=== PATIENT | male | born 1990 | race Caucasian/White ===

== ENCOUNTER 2017-09-12 00:53 | Emergency (ER) | payer OTHER ==
[~2017-09-12] VITALS: Ht 185.4 cm; Wt 159.7 kg
[2017-09-12 00:57] VITALS: TEMP 36.8; Ht 185.4 cm; Wt 159.7 kg
[2017-09-12] MEDS ORDERED: FENTANYL CITRATE INJ 50 MCG/1 ML 2 ML VIAL IV STA (01:13)
[2017-09-12] MEDS ORDERED: LEVO50TA6 PO (01:30)
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
[2017-09-12] MEDS ORDERED: HYDROmorphone INJ 2 MG/ML SYR/VIAL IV STA (02:15)
[2017-09-12 02:26] VITALS: O2SAT 92
[2017-09-12] MEDS ORDERED: OXYC1TAB3 PO (03:33)
[2017-09-12] MEDS ORDERED: OXYCODONE IR HOME PACK PO ONE (03:45)
[2017-09-12 03:52] VITALS: BP 116/64; PULSE 82; O2SAT 97
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
[2017-09-13] MEDS ORDERED: OXYC1TAB3 PO (14:44)
== END 2017-09-12 03:53 | disposition home or self-care (01) ==
LOC: C.EDB 00:55 → C.EDA 03:53
DX: S52.021A Displaced fracture of olecranon process without intraarticular extension of right ulna, initial encounter for closed fracture (principal); V48.6XXA Car passenger injured in noncollision transport accident in traffic accident, initial encounter; Z88.0 Allergy status to penicillin

== ENCOUNTER 2017-09-16 05:24 | Day surgery (SDC) | payer OTHER ==
[2017-09-13 14:45] VITALS: BMI 46.0
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
[~2017-09-16] VITALS: Ht 182.9 cm; Wt 154.6 kg
[~2017-09-16 05:24] MED LIST: LEVO50TA6 PO; OXYC1TAB3 PO
[2017-09-16 05:42] VITALS: BP 160/80; PULSE 80; TEMP 37.4; O2SAT 94; Ht 182.9 cm; Wt 154.6 kg
[2017-09-16] MEDS ORDERED: CLINDAMYCIN 600 MG/54 ML D5W IV SCH (06:00)
[2017-09-16] MEDS ORDERED: LACTATED RINGER'S 1000ML 1,000 ML IV SCH (06:00)
[2017-09-16] MEDS ORDERED: ROPIVACAINE 0.5% 5 MG/ML 30 ML VIAL ONE (06:27)
[2017-09-16] MEDS ORDERED: DEXAMETHASONE SOD INJ 4 MG/ML VIAL ONE ×2 (06:27→06:43)
[2017-09-16] MEDS ORDERED: ONDANSETRON INJ 2 MG/ML 2 ML VIAL ONE (06:43)
[2017-09-16] MEDS ORDERED: PROPOFOL IV EMULSION 10 MG/ML 20 ML VIAL IV ONE ×2 (06:43→08:17)
[2017-09-16] MEDS ORDERED: FENTANYL CITRATE INJ 50 MCG/1 ML 2 ML VIAL ONE ×3 (06:43→09:28)
[2017-09-16] MEDS ORDERED: ROCURONIUM BROMIDE 10 MG/ML 5 ML VIAL IV ONE ×3 (06:43→08:16)
[2017-09-16] MEDS ORDERED: LIDOCAINE HCL 2% 2 ML VIAL (20MG/ML) ONE (06:43)
[2017-09-16] MEDS ORDERED: MIDAZOLAM HCL 1 MG/ML 2ML VIAL ONE (06:43)
--- NOTE | 2017-09-16 07:02 | History & Physical Bridge Note ---
H&P Re-Evaluation Bridge Note: I have examined the patient, reviewed the History & Physical and in the interval since the performance of the History & Physical I have noted the following changes of clinical significance: No changes noted
[2017-09-16] MEDS ORDERED: BUPIVACAINE/EPINEPHRINE 0.5% MPF 1:200,000 30 ML VIAL ONE (07:14)
[2017-09-16] MEDS ORDERED: HYDROmorphone INJ 2 MG/ML SYR/VIAL ONE (07:35)
--- NOTE | 2017-09-16 08:11 | [facility] Post Operative Brief Note ---
Immediate Operative Summary Operative Date Sep 16, 2017. Pre-Operative Diagnosis Displaced intra-articular olecranon fracture, right elbow Post-Operative Diagnosis Same as preop Procedure(s) Performed orif Surgeon Dr. Gomez Nozzle Tender Surgeon(s) Mitch Morse PA-C Estimated Blood Loss 20cc Findings Consistent with Post-Op Diagnosis Specimens none per surgeon Anesthesia Type General Disposition Disposition: Recovery Room / PACU
--- NOTE | 2017-09-16 08:27 | OPERATIVE REPORT ---
DATE OF OPERATION: 09/16/2017 PREOPERATIVE DIAGNOSIS: Same. POSTOPERATIVE DIAGNOSIS: Displaced olecranon fracture, right. PROCEDURE: Open reduction internal fixation of olecranon fracture, right. SURGEON: Tom Gomez MD. PERFORATOR TYPIST: Mitch Morse PA-C. ANESTHESIA: General. COMPLICATIONS: None. Mr. Morse was utilized throughout the case for all portions of the case including positioning, prepping, draping, surgical brace maker, wound closure and splint application. DESCRIPTION OF PROCEDURE: The patient was placed in the left lateral decubitus position and the right elbow was prepped and draped in the usual sterile manner. The limb was exsanguinated with an Esmarch bandage, tourniquet inflated to 250 mmHg. Longitudinal incision was made over the posterior aspect of the elbow. Subcutaneous tissue was sharply dissected. Electrocautery was used for hemostasis. Subperiosteal dissection was used to expose the ulna and the fracture site was identified. Clotted blood was evacuated using mechanical debridement as well as irrigation. A towel clip was used to hold the olecranon in anatomic position while it was fixed using two 0.063 K wires. Fluoroscopy confirmed proper wire placement. An 18-gauge beaded tipped guidewire was then placed in a typical tension fashion and the anatomic fixation of the olecranon was documented by fluoroscopy. The wound was thoroughly irrigated. It was anesthetized Marcaine with epinephrine 0.5% and it was closed using 2-0 Dexon and debi. Sterile dressing of Adaptic, 4 x 4's, sterile Webril, posterior plaster splint and 4-6 inch Reji wrap was applied. The patient tolerated the procedure well. I attest to the content of the Intraoperative Record and any orders documented therein. Any exception s are noted below.
[2017-09-16] MEDS ORDERED: NEOSTIGMINE METHYLSULFATE 5 MG/5 ML SYR ONE (08:28)
[2017-09-16] MEDS ORDERED: GLYCOPYRROLATE INJ 0.2 MG/ML VIAL ONE (08:28)
[2017-09-16] MEDS ORDERED: KETOROLAC TROMETHAMINE 30 MG/ML VIAL IV. PRN (08:30)
[2017-09-16] MEDS ORDERED: MEPERIDINE HCL 25 MG/ML CARP IV PRN (08:30)
[2017-09-16] MEDS ORDERED: EpHEDrine SULFATE INJ 50 MG/ML AMP IV PRN (08:30)
[2017-09-16] MEDS ORDERED: LABETALOL HCL IV 5 MG/ML 20ML IV PRN (08:30)
[2017-09-16] MEDS ORDERED: FENTANYL CITRATE INJ 50 MCG/1 ML 2 ML VIAL IV PRN (08:30)
[2017-09-16] MEDS ORDERED: ATROPINE SULFATE 0.1 MG/ML 5ML SYR IV PRN (08:30)
[2017-09-16] MEDS ORDERED: HYDROmorphone INJ 1 MG/ML SYR IV PRN (08:30)
[2017-09-16] MEDS ORDERED: ONDANSETRON INJ 2 MG/ML 2 ML VIAL IV PRN (08:30)
[2017-09-16] MEDS ORDERED: SODIUM CHLORIDE 0.9% 1000ML 1,000 ML IV SCH (08:47)
[2017-09-16] MEDS ORDERED: OXYC1TAB3 PO (08:49)
--- NOTE | 2017-09-16 08:52 | Discharge Instructions ---
Discharge Instructions Date of Service Sep 16, 2017. Visit Reason for Visit: Right Elbow Displaced Olecranon Fracture W/O Intra Discharge Discharge Diagnosis / Problem: Right elbow olecranon fracture Discharge Goals Goal(s): Decrease discomfort, Improve function Activity Recommendations Activity Limitations: as noted below Anesthesia . Post Anesthesia Instructions: If you have had General Anesthesia or IV Sedation: * Do not drive today. * Resume driving when surgeon permits. * Do not make important decisions or sign legal documents today. * Call surgeon for: 1. Temperature elevations greater than 101 degrees F. 2. Uncontrollable pain. 3. Excessive bleeding. 4. Persistent nausea and vomiting. 5. Medication intolerance (nausea, vomiting or rash). * For nausea and vomiting use only clear liquids such as: tea, soda, bouillon until nausea subsides, then gradually increase diet as tolerated. * If you have any concerns or questions, call your surgeon's office. If physician is unavailable and it is an emergency, call 911 or go to the nearest emergency room. . Instructions / Follow-Up Instructions / Follow-Up Maintain dressing/splint until follow-up with MD. Move fingers frequently. Frequent ice as needed. Follow-up with Dr Gomez ~ 10-14 days. Diet Recommendations Recommended Home Diet: resume previous diet Procedures Procedures Performed: orif Pending Studies Studies pending at discharge: no Medical Emergencies . Who to Call and When: Medical Emergencies: If at any time you feel your situation is an emergency, please call 911 immediately. . Non-Emergent Contact Non-Emergency issues call your: Surgeon Call Non-Emergent contact if: temperature is above 101.5, your pain is not controlled, wound has increased drainage, wound has increased redness . . "Provider Documentation" section prepared by Mitch Morse PA-C. . [place] Drug Monitoring Program Search Results: patient reviewed within database, no issues identified
--- NOTE | 2017-09-16 08:57 | DIAGNOSTIC IMAGING REPORT ---
R ELBOW 2 VIEWS CLINICAL HISTORY: RT ELBOW OLECRANON ORIF fracture COMPARISON: None. DISCUSSION: Evidence for portal reduction internal fixation of the proximal ulnar olecranon fracture. 2. Linear bands and a circumferential wire are present. Bony alignment appears to be anatomic within limitations of the image intensifier views. IMPRESSION: Anatomic alignment of the proximal ulna post open reduction internal fixation. The above report was generated using voice recognition software. It may contain grammatical, syntax or spelling errors. Electronically signed by: Brian Raines M.D. 09/16/2017 8:56 AM Dictated Date/Time: 09/16/2017 8:55 AM
[2017-09-16] MEDS ORDERED: OXYCODONE/ACETAMINOPHEN 5-325 TAB PO PRN ×2 (09:00)
[2017-09-16 10:00] VITALS: BP 140/63; PULSE 92; TEMP 37.5; O2SAT 93
--- NOTE | 2017-09-16 10:02 | Anesthesiology Progress Note ---
Anesthesia Post Op Note Date & Time Sep 16, 2017 at 10:01 Vital Signs Pain Intensity: 4 Vital Signs Past 12 Hours Date Time Temp Pulse Resp B/P (MAP) Pulse Ox O2 Delivery O2 Flow Rate FiO2 09/16/17 09:50 37.0 67 18 133/61 93 Nasal Cannula 2 09/16/17 09:40 37.0 86 18 127/83 93 Nasal Cannula 2 09/16/17 09:30 76 18 146/89 94 Nasal Cannula 3 09/16/17 09:20 89 16 132/84 95 Nasal Cannula 4 09/16/17 09:10 76 16 158/88 91 Oxymask 10 09/16/17 09:00 76 16 133/79 91 Oxymask 10 09/16/17 08:52 36.8 85 16 153/90 92 Oxymask 10 09/16/17 05:42 37.4 80 18 160/80 (106) 94 Room Air Notes Mental Status: alert / awake / arousable, participated in evaluation Pt Amnestic to Procedure: Yes Nausea / Vomiting: adequately controlled Pain: adequately controlled Airway Patency, RR, SpO2: stable & adequate BP & HR: stable & adequate Hydration State: stable & adequate Anesthetic Complications: no major complications apparent
== END 2017-09-16 11:00 | disposition home or self-care (01) ==
LOC: C.ACU 05:24
DX: S52.031A Displaced fracture of olecranon process with intraarticular extension of right ulna, initial encounter for closed fracture (principal); I10 Essential (primary) hypertension; E03.9 Hypothyroidism, unspecified; K21.9 Gastro-esophageal reflux disease without esophagitis; E66.01 Morbid (severe) obesity due to excess calories; V89.2XXA Person injured in unspecified motor-vehicle accident, traffic, initial encounter; Z88.0 Allergy status to penicillin; Z88.1 Allergy status to other antibiotic agents; F17.220 Nicotine dependence, chewing tobacco, uncomplicated

== ENCOUNTER 2021-09-18 11:15 | Inpatient (IN) ==
--- NOTE | 2021-09-18 11:40 | Emergency Department Note ---
History of Present Illness General Chief complaint: Shortness of Breath/Dyspnea Stated complaint: COVID+ 09/15, SOB, LOW O2 Time Seen by Provider: 09/18/21 11:32 History of Present Illness Maximum Pain Intensity: 6 This is a 30-year-old male that presents to the emergency department via private vehicle with complaints of "Covid positive, shortness of breath, low oxygen". Patient notes that on 09/09 he began with chills/shakes. He then progressed to a cough. Patient notes that he tested positive for COVID-19 on 09/15/2021. He notes some shortness of breath. He borrowed a friend's pulse oximeter and his O2 was 77%. He was concerned therefore prompting arrival here today. He does note some intermittent chest pain. Home Medications Medication Instructions Recorded Confirmed Type levothyroxine 137 mcg tablet 137 mcg PO DAILY 09/18/21 09/18/21 History Allergies Allergy/AdvReac Type Severity Reaction Status Date / Time Penicillins Allergy Mild PENICILLIN Verified 06/24/21 21:59 AND AMOXICILLIN-SOB HIVES Past Med/Surg History Medical History History of back problems HLD (hyperlipidemia) Hypothyroidism Obesity Surgical History H/O elbow surgery History of arthroscopic knee surgery Hx of tonsillectomy Family History Mother Multiple sclerosis Father Asthma Social History Smoking Status: Never smoker Hx Alcohol Use: Yes Hx Substance Use: No Preferred Language: Surinamese marital status: Single current occupational status: employed current occupation: [employer] Feels Safe at Home: Yes Review of Systems A total of 10 systems reviewed and were otherwise negative Physical Exam Vital Signs Vital Signs - 24 hr 09/18/21 11:24 09/18/21 11:39 09/18/21 11:47 Temperature 36.3 C L Temperature Source Temporal Artery Scan Pulse Rate 91 H 93 H Pulse Rate [Left Radial] 85 Pulse Rhythm Regular Pulse Rhythm [Left Radial] Regular Pulse Strength [Left Radial] Normal Respiratory Rate 22 20 20 Respiratory Effort / Characteristics Grunting Labored Respiratory Depth Normal Normal Blood Pressure 124/71 Blood Pressure Mean 88 Pulse Oximetry 85 L 93 94 Oxygen Delivery Method Room Air Nasal Cannula Nasal Cannula Oxygen Flow Rate 4 4 Sepsis Recent Fever Within 48 Hours No Sepsis New/Unexplained Change in Mental Status No Sepsis Action Taken by Nursing No Action Required 09/18/21 13:13 Temperature Temperature Source Pulse Rate 74 Pulse Rate [Left Radial] Pulse Rhythm Pulse Rhythm [Left Radial] Pulse Strength [Left Radial] Respiratory Rate 20 Respiratory Effort / Characteristics Respiratory Depth Blood Pressure 114/64 Blood Pressure Mean 80 Pulse Oximetry 92 Oxygen Delivery Method Oxygen Flow Rate 4 Sepsis Recent Fever Within 48 Hours Sepsis New/Unexplained Change in Mental Status Sepsis Action Taken by Nursing VITAL SIGNS - Vital signs and nursing notes were reviewed. Hypoxic, otherwise stable. GENERAL -30-year-old male appearing his stated age who is in no acute distress. Communicates well with provider and answers questions appropriately. SKIN - Without rashes. No meningeal or petechial rash. HEAD - NC/AT. EYES - PERRL with EOMI bilaterally. Sclera anicteric. EARS - No deformities of external structures noted on gross examination bilaterally. NOSE - Midline and without cyanosis. No epistaxis or purulent drainage noted. MOUTH/OROPHARYNX - Without perioral cyanosis. Buccal mucosa pink and moist and without leukoplakia. Tongue midline with equal elevation of palate bilaterally. No tonsillar hypertrophy, erythema, or exudates noted. Good dentition noted. NECK - Neck with FROM. No nuchal rigidity. LUNGS -decreased breath sounds bilaterally. No increased work of breathing appreciated on examination. No drooling, stridor, trismus, wheezing or tripoding. Normal phonation. CARDIAC - RRR with S1/S2. No murmur, rubs, or gallops appreciated. EXTREMITIES - No clubbing or peripheral cyanosis. +5/5 strength noted in UE/LE bilaterally. NEUROLOGIC - Cranial nerves II through XII grossly intact. PSYCH - A&O, and cooperates fully with examiner. Pt is very pleasant and interacts well with examiner. Course Administered Medications Discontinued Medications Ioversol (Optiray 320 125ml) 119 ml IV ONCE ONE Stop: 09/18/21 12:49 Last Admin: 09/18/21 12:50 Dose: 119 ml Documented by: [id number] Medical Decision Making Laboratory Data Result diagrams: 09/18/21 11:36 09/18/21 11:36 Lab Results 09/18/21 09/18/21 09/18/21 Range/Units 11:36 11:36 11:36 WBC 7.77 (4.8-10.8) K/uL RBC 4.86 (4.7-6.1) M/uL Hgb 16.4 (14.0-18.0) g/dL POC Hgb (14.0-18.0) g/dl Hct 46.2 (42-52) % POC Hct (42-52) % MCV 95.1 (80-100) fL MCH 33.7 (25-34) pg MCHC 35.5 (32-36) g/dL RDW Std Deviation 43.7 (36.4-46.3) fL RDW Coeff of Mray 12.6 (11.5-14.5) % Plt Count 285 (130-400) K/uL MPV 9.7 (7.4-10.4) fL Immature Gran % (Auto) 0.4 % Neut % (Auto) 84.8 % Lymph % (Auto) 7.2 % Dickey % (Auto) 7.5 % Eos % (Auto) 0.0 % Baso % (Auto) 0.1 % Neut # (Auto) 6.59 H (1.4-6.5) K/uL Lymph # (Auto) 0.56 L (1.2-3.4) K/uL Dickey # (Auto) 0.58 (0.11-0.59) K/uL Eos # (Auto) 0.00 (0-0.5) K/uL Baso # (Auto) 0.01 (0-0.2) K/uL Immature Gran # (Auto) 0.03 H (0.00-0.02) K/uL RBC Morphology Unremarkable PT 9.9 (9.0-12.0) Seconds INR 1.0 (0.9-1.1) APTT 30.3 (21.0-31.0) Seconds PTT Ratio 1.2 D-Dimer 1520 H* (0-500) ug/L FEU POC Sodium (135-144) mmol/L Sodium 137 (136-145) mmol/L POC Potassium (3.3-5.0) mmol/L Potassium 3.9 (3.5-5.1) mmol/L POC Chloride (101-112) mmol/L Chloride 104 (98-107) mmol/L Carbon Dioxide 25 (21-32) mmol/L POC Total CO2 (24-31) mmol/L Anion Gap 8 (3-11) POC Anion Gap (16-25) mmol/L POC BUN (7-18) mg/dl BUN 14 (6-23) mg/dl Creatinine 1.03 (0.6-1.4) mg/dl POC Creatinine (0.6-1.3) mg/dl Est Cr Clr Drug Dosing 173.6 ml/min Est GFR ( Amer) 111.7 ml/min Est GFR (Non-Af Amer) 96.3 ml/min BUN/Creatinine Ratio 13.6 (10-20) Glucose 131 H (70-99(Fasting)) mg/dl POC Glucose (other) (70-99) mg/dl Calcium 8.5 (8.5-10.1) mg/dl POC Ioniz Calcium Matty (1.12-1.32) mmol/l Magnesium 2.0 (1.7-2.4) mg/dl Total Bilirubin 0.8 (0.2-1.0) mg/dl AST 98 H (13-39) U/L ALT 85 H (7-52) U/L Alkaline Phosphatase 35 (34-104) U/L Troponin I < 0.03 (0-0.04) ng/ml C-Reactive Protein 3.32 H (0-0.5) mg/dl Total Protein 7.4 (6.0-8.3) gm/dl Albumin 3.9 (3.4-5.0) gm/dl Globulin 3.5 (2.5-4.0) gm/dl Albumin/Globulin Ratio 1.1 (0.9-2) 09/18/21 Range/Units 11:58 WBC (4.8-10.8) K/uL RBC (4.7-6.1) M/uL Hgb (14.0-18.0) g/dL POC Hgb 14.6 (14.0-18.0) g/dl Hct (42-52) % POC Hct 43 (42-52) % MCV (80-100) fL MCH (25-34) pg MCHC (32-36) g/dL RDW Std Deviation (36.4-46.3) fL RDW Coeff of Mary (11.5-14.5) % Plt Count (130-400) K/uL MPV (7.4-10.4) fL Immature Gran % (Auto) % Neut % (Auto) % Lymph % (Auto) % Dickey % (Auto) % Eos % (Auto) % Baso % (Auto) % Neut # (Auto) (1.4-6.5) K/uL Lymph # (Auto) (1.2-3.4) K/uL Dickey # (Auto) (0.11-0.59) K/uL Eos # (Auto) (0-0.5) K/uL Baso # (Auto) (0-0.2) K/uL Immature Gran # (Auto) (0.00-0.02) K/uL RBC Morphology PT (9.0-12.0) Seconds INR (0.9-1.1) APTT (21.0-31.0) Seconds PTT Ratio D-Dimer (0-500) ug/L FEU POC Sodium 140 (135-144) mmol/L Sodium (136-145) mmol/L POC Potassium 3.8 (3.3-5.0) mmol/L Potassium (3.5-5.1) mmol/L POC Chloride 101 (101-112) mmol/L Chloride (98-107) mmol/L Carbon Dioxide (21-32) mmol/L POC Total CO2 26 (24-31) mmol/L Anion Gap (3-11) POC Anion Gap 18.0 (16-25) mmol/L POC BUN 14 (7-18) mg/dl BUN (6-23) mg/dl Creatinine (0.6-1.4) mg/dl POC Creatinine 1.1 (0.6-1.3) mg/dl Est Cr Clr Drug Dosing ml/min Est GFR ( Amer) ml/min Est GFR (Non-Af Amer) ml/min BUN/Creatinine Ratio (10-20) Glucose (70-99(Fasting)) mg/dl POC Glucose (other) 133 H (70-99) mg/dl Calcium (8.5-10.1) mg/dl POC Ioniz Calcium Matty 1.10 L (1.12-1.32) mmol/l Magnesium (1.7-2.4) mg/dl Total Bilirubin (0.2-1.0) mg/dl AST (13-39) U/L ALT (7-52) U/L Alkaline Phosphatase (34-104) U/L Troponin I (0-0.04) ng/ml C-Reactive Protein (0-0.5) mg/dl Total Protein (6.0-8.3) gm/dl Albumin (3.4-5.0) gm/dl Globulin (2.5-4.0) gm/dl Albumin/Globulin Ratio (0.9-2) Imaging Data Radiologist's Impression: Chest X-Ray 09/18/21 11:40 XR chest 1V portable HISTORY: COVID,hypoxia COMPARISON: Chest 06/24/2021. FINDINGS: There are low lung volumes. There are multifocal patchy bilateral ai rspace opacities. The heart is mildly enlarged. No pleural effusions. No pneumothorax. IMPRESSION: 1. Multifocal patchy bilateral airspace opacities. This likely represents a viral pneumonia. 2. Mild cardiomegaly. ACT 112: Negative or not required by law. Electronically signed by: Rafiq Jara M.D. 09/18/2021 12:22 PM Chest CTA 09/18/21 12:24 CT angio chest PE protocol CT DOSE: 1210.79 mGy.cm HISTORY: 30 years-old Male with COVID, Hypoxia. Acute hypoxia. COVID Positive. TECHNIQUE: Multiple CTA images of the chest were obtained after the intravenous administration of 119 ml Optiray. Coronal and sagittal MIPS were obtained from the axial data set and were submitted for review. All measurements were obtained according to NASCET criteria. A dose lowering technique was utilized adhering to the principles of ALARA. COMPARISON: Chest radiograph 09/18/2021 FINDINGS: CTA: Mild cardiomegaly. No pericardial effusion. No thoracic aortic aneurysm or dissection. There is patency of the imaged great vessels. Unremarkable pulmonary artery. CT CHEST: No thyroid nodule. Mildly enlarged paratracheal lymph nodes measure up to 1.3 cm. Prominent subcentimeter bilateral hilar lymph nodes. No pneumothorax or pleural effusion. Extensive multifocal multilobar bilateral excretion of groundglass and alveolar opacities. The central airways are patent. Hepatomegaly with hepatic steatosis. The spleen also appears enlarged. Unremarkable soft tissues. Mild mid thoracic dextroscoliosis. No acute fracture IMPRESSION: 1. Mild cardiomegaly without pulmonary emboli. 2. Extensive bilateral groundglass and alveolar opacities are compatible with multifocal pneumonia, likely viral etiology. 3. Mild likely reactive mediastinal lymphadenopathy. 4. Hepatosplenomegaly with hepatic steatosis. ACT 112: Negative or not required by law. The above report was generated using voice recognition software. It may contain grammatical, syntax or spelling errors. Electronically signed by: Yvan Benito M.D. 09/18/2021 1:10 PM [facility] Narrative Patient was seen and evaluated as above in room B 11. Review was performed of nursing notes and vital signs. After obtaining a thorough history and physical examination the above work up was performed. Patient presents to us today hypoxic in the setting of recent COVID-19 diagnosis. He is hypoxic on arrival. Oxygen was started. Options of care were discussed with the patient. IV access was established. Labs were drawn. No leukocytosis or concerning anemia. D-dimer 1520. No emergent metabolic disturbance. Mild elevation of AST and ALT. Troponin normal. CRP 3.32. Chest x-ray concerning for pneumonia. Given the patient's hypoxic state in setting of COVID-19 it was felt that a CT of the chest is warranted. Results as above. This confirms the COVID-19 pneumonia however there is no evidence of PE. Mild cardiomegaly is noted. I do believe that with the patient being hypoxic that further evaluation and management in the inpatient setting is warranted. Patient in agreement with plan of care. All questions were answered. Case discussed with the hospitalist service as well as the attending physician. Please refer to further documentation regarding his stay. An order was placed for continuous cardiac monitoring. The monitor shows a rate of 75 with sinus rhythm. GCS: 15 In the evaluation and treatment of this patient, the following differential diagnoses were considered: MD, ASC, Dysrhythmia, Angina, Mediastinitis, GERD, Esophagitis, PE, Pneumonia, Bronchitis, Costochondritis, Rib Fracture, COVID-19, dissection, among others. Impression & Plan Pneumonia due to COVID-19 virus, Hypoxia Discharge Plan Visit Data Chief Complaint: Shortness of Breath/Dyspnea Stated Complaint: COVID+ 2/21, SOB, LOW O2 ED Provider: Mohan Jones ED Midlevel Provider: Giuseppe Mcfadden Discharge Problem: Pneumonia due to COVID-19 virus, Hypoxia Patient Disposition: Admitted As Inpatient Condition: Good Forms Stand Alone Forms: My [employer] Prescriptions Prescriptions: No Action levothyroxine 137 mcg tablet 137 mcg PO DAILY RF: 0 Referrals Referrals: Orville Blackburn MD [Primary Care Provider] -
[2021-09-18 11:53] LABS: Hematocrit (blood only) 46.2 % (42-52); Hemoglobin 16.4 g/dL (14.0-18.0); Mean Corpuscular Hemoglobin 33.7 pg (25-34); Mean Corpuscular Hgb Conc 35.5 g/dL (32-36); Mean Corpuscular Volume 95.1 fL (80-100); Mean Platelet Volume 9.7 fL (7.4-10.4); Platelet Count 285 K/uL (130-400); RDW Coefficient of Variation 12.6 % (11.5-14.5); RDW Standard Deviation 43.7 fL (36.4-46.3); Red Blood Count 4.86 M/uL (4.7-6.1); White Blood Count 7.77 K/uL (4.8-10.8)
[2021-09-18 12:06] LABS: Partial Thromboplastin Ratio 1.2; Partial Thromboplastin Time 30.3 Seconds (21.0-31.0); Prothrombin Time 9.9 Seconds (9.0-12.0)
[2021-09-18 12:10] LABS: iSTAT Creatinine 1.1 mg/dl (0.6-1.3); iSTAT Hemoglobin 14.6 g/dl (14.0-18.0); iSTAT Ionized Calcium 1.1 mmol/l (1.12-1.32); iSTAT Potassium 3.8 mmol/L (3.3-5.0)
[2021-09-18 12:12] LABS: D Dimer 1520 ug/L FEU (0-500)
[2021-09-18 12:14] LABS: Basophils # (auto) 0.01 K/uL (0-0.2); Basophils % (auto) 0.1 %; Immature Granulocytes # (auto) 0.03 K/uL (0.00-0.02); Immature Granulocytes % (auto) 0.4 %; Lymphocytes # (auto) 0.56 K/uL (1.2-3.4); Lymphocytes % (auto) 7.2 %; Monocytes # (auto) 0.58 K/uL (0.11-0.59); Monocytes % (auto) 7.5 %; Neutrophils # (auto) 6.59 K/uL (1.4-6.5); Neutrophils % (auto) 84.8 %; RBC Morphology Unremarkable
[2021-09-18 12:19] LABS: Troponin I < 0.03 ng/ml (0-0.04)
[2021-09-18 12:21] LABS: Alanine Aminotransferase 85 U/L (7-52); Albumin Globulin Ratio 1.1 (0.9-2); Albumin Level 3.9 gm/dl (3.4-5.0); Alkaline Phosphatase 35 U/L (34-104); Anion Gap 8 (3-11); Aspartate Aminotransferase 98 U/L (13-39); BUN Creatinine Ratio 13.6 (10-20); Bilirubin,Total 0.8 mg/dl (0.2-1.0); Blood Urea Nitrogen 14 mg/dl (6-23); C Reactive Protein 3.32 mg/dl (0-0.5); Calcium 8.5 mg/dl (8.5-10.1); Carbon Dioxide 25 mmol/L (21-32); Chloride 104 mmol/L (98-107); Creatinine Clr Calc Pharmacy 173.6 ml/min; Est GFR (African American) 111.7 ml/min; Est GFR (Non-African American) 96.3 ml/min; Globulin 3.5 gm/dl (2.5-4.0); Glucose 131 mg/dl (70-99(Fasting)); Potassium 3.9 mmol/L (3.5-5.1); Sodium 137 mmol/L (136-145); Total Protein 7.4 gm/dl (6.0-8.3)
--- NOTE | 2021-09-18 12:23 | XRay Report ---
XR chest 1V portable HISTORY: COVID,hypoxia COMPARISON: Chest 06/24/2021. FINDINGS: There are low lung volumes. There are multifocal patchy bilateral airspace opacities. The h eart is mildly enlarged. No pleural effusions. No pneumothorax. IMPRESSION: 1. Multifocal patchy bilateral airspace opacities. This likely represents a viral pneumonia. 2. Mild cardiomegaly. ACT 112: Negative or not required by law. Electronically signed by: Rafiq Jara M.D. 09/18/2021 12:22 PM
[2021-09-18] MEDS ORDERED: OPTIRAY 320 125ml IV ONE (12:48)
--- NOTE | 2021-09-18 13:12 | CT Scan Report ---
CT angio chest PE protocol CT DOSE: 1210.79 mGy.cm HISTORY: 30 years-old Male with COVID, Hypoxia. Acute hypoxia. COVID Positive. TECHNIQUE: Multiple CTA images of the chest were obtained after the intravenous administration of 119 ml Optiray. Coronal and sagittal MIPS were obtained from the axial data set and were submitted for review. All measurements were obtained according to NASCET criteria. A dose lowering technique was u tilized adhering to the principles of ALARA. COMPARISON: Chest radiograph 09/18/2021 FINDINGS: CTA: Mild cardiomegaly. No pericardial effusion. No thoracic aortic aneurysm or dissection. There is paten cy of the imaged great vessels. Unremarkable pulmonary artery. CT CHEST: No thyroid nodule. Mildly enlarged paratracheal lymph nodes measure up to 1.3 cm. Prominent subcentim eter bilateral hilar lymph nodes. No pneumothorax or pleural effusion. Extensive multifocal multiloba r bilateral excretion of groundglass and alveolar opacities. The central airways are patent. Hepatomegaly with hepatic steatosis. The spleen also appears enlarged. Unremarkable soft tissues. Mil d mid thoracic dextroscoliosis. No acute fracture IMPRESSION: 1. Mild cardiomegaly without pulmonary emboli. 2. Extensive bilateral groundglass and alveolar opacities are compatible with multifocal pneumonia, l ikely viral etiology. 3. Mild likely reactive mediastinal lymphadenopathy. 4. Hepatosplenomegaly with hepatic steatosis. ACT 112: Negative or not required by law. The above report was generated using voice recognition software. It may contain grammatical, syntax o r spelling errors. Electronically signed by: Yvan Benito M.D. 09/18/2021 1:10 PM
--- NOTE | 2021-09-18 13:13 | History & Physical Report ---
Date of Service September 18, 2021 Assessment & Plan (1) Acute respiratory failure with hypoxia: (2) Pneumonia due to COVID-19 virus: (3) Morbid obesity with BMI of 50.0-59.9, adult: (4) Hypothyroidism: (5) Elevated transaminase level: Plan: This is a 30 yr old M who has a significant PMH of morbid obesity and hypothyroidism who presents to ED 2/2 to worsening cough, sob and low pulse ox readings x 1 day. CXR: Multifocal patchy bilateral airspace opacities. This likely represents a viral pneumonia. CTA Chest: Mild cardiomegaly without pulmonary emboli. 2. Extensive bilateral groundglass and alveolar opacities are compatible with multifocal pneumonia, likely viral etiology. 3. Mild likely reactive mediastinal lymphadenopathy. 4. Hepatosplenomegaly with hepatic steatosis. Acute hypoxic respiratory failure Pneumonia due to COVID-19 Sx started 09/09, tested positive in [facility] clinic 09/15 Nonvaccinated status continue supplemental oxygen Dexamethasone 6mg IV daily Remdesivir per protocol, monitor lfts pulmonary toilet with incentive spirometry, albuterol supportive care encourage self proning procal pending Hepatic steatosis Elevated transaminase level Repeat LFTs in a.m. Possibly in setting of fatty liver disease due to morbid obesity Encourage weight loss, diet and lifestyle modifications Hypothyroidism Continue levothyroxine DVT prophylaxis: Lovenox twice daily Dispo: PCU FULL CODE PCP: Alexey Pt was seen by Dr. Salter and collaborated with Myself. Please see Dr. Salter addendum. History of Present Illness Chief Complaint: SOB and low oxygen levels x 1 day. Primary Care Provider: Orville Blackburn MD This is a 30 yr old M who has a significant PMH of morbid obesity and hypothyroidism who presents to ED 2/2 to worsening cough, sob and low pulse ox readings x 1 day. He was dx with covid-19 on 09/15. He initially started with sx on 09/09. He developed rigors, chills, cough and SOB. He was seen in clinic on 09/15 where he initially tested positive. He was prescribed oral prednisone 20mg daily x 5 days and a zpack. Pt borrowed his neighbors pulse ox today and noted his oxygen to be in the 70s. He also had a telemedicine visit with Dr. Piña who witnessed pulse ox readings in the 80s. Pt was urged to proceed to ED. In ED he was hypoxic requiring 4L of O2. He was afebrile. CXR concerning for viral pneumonia. He had and elevated dimer and crp. CTA chest was negative for PE but did confirm multifocal pneumonia, hepatic steatosis and cardiomegaly. Pt did also complain of intermittent chest pain. Allergies Allergy/AdvReac Type Severity Reaction Status Date / Time Penicillins Allergy Mild PENICILLIN Verified 09/18/21 13:36 AND AMOXICILLIN-SOB HIVES amoxicillin Allergy Hives Unverified 09/18/21 13:36 Home Medications Medication Instructions Recorded Confirmed Type azithromycin 250 mg tablet 0 mg PO DAILY 09/18/21 09/18/21 History levothyroxine 137 mcg tablet 137 mcg PO DAILY 09/18/21 09/18/21 History prednisone 20 mg tablet 20 mg PO DAILY 09/18/21 09/18/21 History Past Med/Surg History Medical History History of back problems HLD (hyperlipidemia) Hypothyroidism Obesity Surgical History H/O elbow surgery History of arthroscopic knee surgery Hx of tonsillectomy Family History Mother Multiple sclerosis Father Asthma Social History Smoking Status: Never smoker Hx Alcohol Use: Yes Hx Substance Use: No Preferred Language: Upper Sorbian marital status: Single current occupational status: employed current occupation: [employer] Feels Safe at Home: Yes Review of Systems Review of Systems: All systems reviewed & are unremarkable except as noted in HPI & below Physical Exam Physical Exam: Please refer to Dr. Salter addendum for physical exam findings Results & Data Results & Data ([facility]) Vital Signs (Past 12 Hours) Vital Signs Temp Pulse Pulse Resp BP Pulse Ox 09/18/21 11:47 93 H 20 94 09/18/21 11:39 85 20 93 09/18/21 11:24 36.3 C L 91 H 22 124/71 85 L Diagnostic Findings Chest X-Ray 09/18/21 11:40 XR chest 1V portable HISTORY: COVID,hypoxia COMPARISON: Chest 06/24/2021. FINDINGS: There are low lung volumes. There are multifocal patchy bilateral airspace opacities. The heart is mildly enlarged. No pleural effusions. No pneumothorax. IMPRESSION: 1. Multifocal patchy bilateral airspace opacities. This likely represents a viral pneumonia. 2. Mild cardiomegaly. ACT 112: Negative or not required by law. Chest CTA: IMPRESSION: 1. Mild cardiomegaly without pulmonary emboli. 2. Extensive bilateral groundglass and alveolar opacities are compatible with multifocal pneumonia, likely viral etiology. 3. Mild likely reactive mediastinal lymphadenopathy. 4. Hepatosplenomegaly with hepatic steatosis. Electronically signed by: Rafiq Jara M.D. 09/18/2021 12:22 PM Medications Administered Medication List Discontinued Medications Ioversol (Optiray 320 125ml) 119 ml IV ONCE ONE Stop: 09/18/21 12:49 Last Admin: 09/18/21 12:50 Dose: 119 ml Documented by: [id number] ECG Rate (beats per minute): 85 Rhythm: normal sinus Findings: + RBBB (incomplete) COVID-19 Results Results COVID-19 Adm Lab Results: RBC 4.86 M/uL (4.7-6.1) 09/18/21 WBC 7.77 K/uL (4.8-10.8) 09/18/21 Hgb 16.4 g/dL (14.0-18.0) 09/18/21 Hct 46.2 % (42-52) 09/18/21 Plt Count 285 K/uL (130-400) 09/18/21 Neutrophils (%) (Auto) 84.8 % 09/18/21 Lymphocytes (%) (Auto) 7.2 % 09/18/21 Monocytes # (Auto) 0.58 K/uL (0.11-0.59) 09/18/21 Eosinophils # (Auto) 0.00 K/uL (0-0.5) 09/18/21 Immature Granulocyte % (Auto) 0.4 % 09/18/21 Neutrophils # (Auto) 6.59 K/uL (1.4-6.5) H 09/18/21 Lymphocytes # (Auto) 0.56 K/uL (1.2-3.4) L 09/18/21 Monocytes # (Auto) 0.58 K/uL (0.11-0.59) 09/18/21 Eosinophils # (Auto) 0.00 K/uL (0-0.5) 09/18/21 Basophils # (Auto) 0.01 K/uL (0-0.2) 09/18/21 Immature Granulocyte # (Auto) 0.03 K/uL (0.00-0.02) H 09/18/21 Red Blood Cell Morphology Unremarkable 09/18/21 Na 137 mmol/L (136-145) 09/18/21 K 3.9 mmol/L (3.5-5.1) 09/18/21 Cl 104 mmol/L (98-107) 09/18/21 CO2 25 mmol/L (21-32) 09/18/21 Anion Gap 8 (3-11) 09/18/21 BUN 14 mg/dl (6-23) 09/18/21 Creatinine 1.03 mg/dl (0.6-1.4) 09/18/21 BUN/Creatinine Ratio 13.6 (10-20) 09/18/21 Glucose Level 131 mg/dl (70-99(Fasting)) H 09/18/21 Ca 8.5 mg/dl (8.5-10.1) 09/18/21 Total Bilirubin 0.8 mg/dl (0.2-1.0) 09/18/21 AST/SGOT 98 U/L (13-39) H 09/18/21 ALT/SGPT 85 U/L (7-52) H 09/18/21 Alkaline Phosphatase 35 U/L (34-104) 09/18/21 Total Protein 7.4 gm/dl (6.0-8.3) 09/18/21 Albumin 3.9 gm/dl (3.4-5.0) 09/18/21 Globulin 3.5 gm/dl (2.5-4.0) 09/18/21 Albumin/Globulin Ratio 1.1 (0.9-2) 09/18/21 Troponin I < 0.03 ng/ml (0-0.04) 09/18/21 CRP 3.32 mg/dl (0-0.5) H 09/18/21 D-Dimer 1520 ug/L FEU (0-500) H* 09/18/21 PTT 30.3 Seconds (21.0-31.0) 09/18/21 INR 1.0 (0.9-1.1) 09/18/21 Chest X-Ray 09/18/21 Code Status & VTE Plan Code Status FULL CODE VTE Prophylaxis Plan VTE Prophylaxis will be ordered: Yes Supervising Physician Co-Signing Physician Notes Attending addendum: The patient was seen and examined in emergency room He is morbidly obese with hypothyroidism and has been complaining of cough with increasing shortness of breath for the last 2 to 3 days. He is not vaccinated for COVID and has been tested positive on 09/15/2021 He has had fever with chills before 09/15/2021 Chest x-ray and CTA showing bilateral multilobar pneumonia without any pulmonary embolism Denies any chest pain or palpitation, no abdominal pain nausea and vomiting On examination Morbidly obese with moderate shortness of breath at rest Chestdecreased breath sounds both bases without any crackles and or wheezing HeartS1, S2 regular Abdomenbenign Extremitiesno edema His admission labs, EKG and imaging studies reviewed CTA is positive for bilateral groundglass and alveolar opacities compatible with viral pneumonia without any PE and COVID-19 viral test has been positive We will start remdesivir and dexamethasone and other supportive medications for symptomatic relief Agree with assessment and plan as outlined above by Maryam Salter
[2021-09-18] MEDS ORDERED: dexAMETHasone 6 MG in SYRINGE 0 ML IV ONE (13:30)
[2021-09-18] MEDS ORDERED: ACETAMINOPHEN 325 MG TAB PO PRN (15:45)
[2021-09-18] MEDS ORDERED: ALBUTEROL 0.083% NEBU SOLN 3 ML VIAL NEB PRN (15:45)
[2021-09-18] MEDS ORDERED: ALUMINUM/MAGNESIUM SUSP 30 ML UDC PO PRN (15:45)
[2021-09-18] MEDS ORDERED: POLYETHYLENE (MIRALAX) 17 GM PACK PO PRN (15:45)
[2021-09-18] MEDS ORDERED: MAGNESIUM HYDROXIDE SUSP 30 ML UDC PO PRN (15:45)
[2021-09-18] MEDS ORDERED: ONDANSETRON INJ 2 MG/ML 2 ML VIAL IV PRN (15:45)
[2021-09-18] MEDS ORDERED: REMDESIVIR 200 MG in SODIUM CHLORIDE 0.9% 210 ML IV ONE (16:00)
[2021-09-18] MEDS: BENZONATATE 100 MG CAPSULE PO SCH ×2 (16:53→20:35)
--- NOTE | 2021-09-18 17:42 | Electrocardiogram Report ---
Test Reason : Blood Pressure : / mmHG Vent. Rate : 085 BPM Atrial Rate : 085 BPM P-R Int : 186 ms QRS Dur : 108 ms QT Int : 370 ms P-R-T Axes : 040 002 009 degrees QTc Int : 440 ms Normal sinus rhythm Incomplete right bundle branch block Borderline ECG When compared with ECG of 24-JUN-2021 17:54, No significant change was found Confirmed by Layo Beard ([id number]) on 09/18/2021 5:41:59 PM Referred By: REFERRED SELF Confirmed By:Conor Beard
[2021-09-18] MEDS: ALBUTEROL HFA 8 GM INHALER INH SCH (19:14)
[2021-09-18] MEDS ORDERED: methylPREDNISolone 40 MG in SYRINGE 0 ML IV STA (20:23)
[2021-09-18] MEDS ORDERED: XOPENEX/ATROVENT 1.25mg/0.5MG NEB COMBO NEB STA (20:24)
[2021-09-18] MEDS ORDERED: IPRATROPIUM BROMIDE NEB SOLN 0.02% 2.5 ML VIAL INH STA (20:29)
[2021-09-18] MEDS ORDERED: LEVALBUTEROL 1.25MG/0.5ML NEB INH STA (20:29)
[2021-09-18 21:20] LABS: Base Excess ABG 1.6 mEq/L (-9-1.8); HCO3 ABG 25 mmol/L (19-24); Oxygen Saturation ABG 96.8 % (90-95); PCO2 ABG 35 mmHg (35-46); PO2 ABG 83 mmHg (80-95); pH ABG 7.46 (7.35-7.45)
[2021-09-18] MEDS: ENOXAPARIN INJ 40 MG/0.4 ML SYR SQ SCH (21:20)
[2021-09-18 21:21] LABS: Allen Test Pos (Pos)
[2021-09-19] MEDS: LEVOTHYROXINE SODIUM 137 MCG TABLET PO SCH (05:43)
[2021-09-19 06:59] LABS: Basophils # (auto) 0.01 K/uL (0-0.2); Basophils % (auto) 0.2 %; Hematocrit (blood only) 45.4 % (42-52); Hemoglobin 15.8 g/dL (14.0-18.0); Immature Granulocytes # (auto) 0.04 K/uL (0.00-0.02); Immature Granulocytes % (auto) 0.6 %; Lymphocytes # (auto) 0.78 K/uL (1.2-3.4); Lymphocytes % (auto) 12.6 %; Mean Corpuscular Hemoglobin 33.4 pg (25-34); Mean Corpuscular Hgb Conc 34.8 g/dL (32-36); Mean Platelet Volume 9.9 fL (7.4-10.4); Monocytes % (auto) 8.1 %; Neutrophils # (auto) 4.86 K/uL (1.4-6.5); Neutrophils % (auto) 78.5 %; Platelet Count 324 K/uL (130-400); RDW Coefficient of Variation 12.6 % (11.5-14.5); Red Blood Count 4.73 M/uL (4.7-6.1); White Blood Count 6.19 K/uL (4.8-10.8)
[2021-09-19] MEDS: ALBUTEROL HFA 8 GM INHALER INH SCH ×4 (07:10→19:15)
[2021-09-19 07:19] LABS: Albumin Globulin Ratio 1.2 (0.9-2); Albumin Level 3.6 gm/dl (3.4-5.0); BUN Creatinine Ratio 20.7 (10-20); Bilirubin,Total 0.8 mg/dl (0.2-1.0); Calcium 8.5 mg/dl (8.5-10.1); Creatinine Clr Calc Pharmacy 224.2 ml/min; Est GFR (African American) 136.6 ml/min; Est GFR (Non-African American) 117.8 ml/min; Globulin 3.1 gm/dl (2.5-4.0); Magnesium 2.1 mg/dl (1.7-2.4); Potassium 4.2 mmol/L (3.5-5.1); Total Protein 6.7 gm/dl (6.0-8.3)
--- NOTE | 2021-09-19 07:34 | XRay Report ---
XR chest 1V portable HISTORY: 30 years-old Male low o2 acute hypoxia. COVID Positive. COMPARISON: Chest radiograph and CTA chest studies of same day TECHNIQUE: Portable AP view of the chest FINDINGS: Cardiac silhouette is enlarged. Lungs are hypoinflated. Extensive bilateral airspace opacities redemo nstrated without significant change. No pneumothorax or large pleural effusion. The bones appear mireille sly intact. IMPRESSION: Extensive bilateral airspace opacities compatible with multifocal pneumonia redemonstrate d. ACT 112: Negative or not required by law. The above report was generated using voice recognition software. It may contain grammatical, syntax o r spelling errors. Electronically signed by: Yvan Benito M.D. 09/19/2021 7:33 AM
[2021-09-19] MEDS: BENZONATATE 100 MG CAPSULE PO SCH ×3 (07:41→20:33)
[2021-09-19] MEDS: dexAMETHasone 6 MG in SYRINGE 0 ML IV SCH (07:41)
[2021-09-19] MEDS: ENOXAPARIN INJ 40 MG/0.4 ML SYR SQ SCH ×2 (07:41→20:32)
[2021-09-19] MEDS ORDERED: FUROSEMIDE INJ 20 MG/2 ML VIAL IV ONE (10:31)
--- NOTE | 2021-09-19 10:37 | XRay Report ---
XR chest 1V portable HISTORY: 30 years-old Male f/u, increasing O2 req acute hypoxia COMPARISON: Chest radiograph and CTA chest 09/18/2021 TECHNIQUE: Portable AP view of the chest FINDINGS: Cardiac silhouette is enlarged. Interstitial coarsening with extensive bilateral airspace opacities, stable to mildly progressed. No pneumothorax or large pleural effusion. The bones appear grossly inta ct. IMPRESSION: Stable to mildly progressed extensive bilateral airspace opacities compatible with multif ocal pneumonia. ACT 112: Negative or not required by law. The above report was generated using voice recognition software. It may contain grammatical, syntax o r spelling errors. Electronically signed by: Yvan Benito M.D. 09/19/2021 10:35 AM
[2021-09-19] MEDS: REMDESIVIR 100 MG in SODIUM CHLORIDE 0.9% 230 ML IV SCH (11:23)
--- NOTE | 2021-09-19 17:24 | Hospitalist Progress Note ---
Date of Service September 19, 2021 Assessment & Plan (1) Acute respiratory failure with hypoxia: (2) Pneumonia due to COVID-19 virus: (3) Morbid obesity with BMI of 50.0-59.9, adult: (4) Hypothyroidism: (5) Elevated transaminase level: Plan: 30 yr old M who has a significant PMH of morbid obesity and hypothyroidism who presents to ED 09/19 due to worsening cough, sob and low pulse ox readings x 1 day. He is being managed for the following: Acute hypoxic respiratory failure Pneumonia due to COVID-19 Patient reports having sings and symptoms since 09 September Admitting imagings: CXR: Multifocal patchy bilateral airspace opacities. This likely represents a viral pneumonia. CTA Chest: Mild cardiomegaly without pulmonary emboli. 2. Extensive bilateral groundglass and alveolar opacities are compatible with multifocal pneumonia, likely viral etiology. 3. Mild likely reactive mediastinal lymphadenopathy. 4. Hepatosplenomegaly with hepatic steatosis. BNP negative, admitting pro-Mars negative. Sx started 09/09, tested positive in [facility] 09/15 09/19: Patient given detailed information on the prognosis and the nature of Covid course. Explained the possibility of worst case scenario and he would like to go with everything possible including intubation. Nonvaccinated status Continue with dexamethasone 09/18 and remdesivir 09/18 Continue to monitor kidney and liver functions. pulmonary toilet with incentive spirometry, albuterol supportive care encourage self proning Patient requiring high oxygen, CRP today was 3.76, wean down oxygen as tolerated. Hepatic steatosis Elevated transaminase level Follow LFT level, downtrending. Possibly in setting of fatty liver disease due to morbid obesity on the background of Covid. Encouraged weight loss, diet and lifestyle modifications Hypothyroidism Continue levothyroxine DVT prophylaxis: Lovenox twice daily Dispo: PCU FULL CODE PCP: Alexey Admission and Anticipated Discharge Date Admission Date: September 18, 2021 Subjective Patient was seen and examined at bedside for follow-up of acute hypoxic respiratory failure and pneumonia due to COVID-19 virus infection. Patient was sitting up in bed, on 60 L high flow oxygen, NAD, no new acute events overnight. Patient was able to pull 1750 mL on incentive spirometer. Patient denies any fever/chills/chest pain/palpitations/belly pain/sore throat/other review of symptoms. Patient reports improving cough and diarrhea. Patient has good appetite. Physical Exam Physical Exam: GENERAL: Alert and oriented x3. NAD, on 60L at 92%, IS - 1750 ml. MOrbidly obese. HEENT: No pallor, no icterus. Pupils equal, round and reactive to light. Oral mucosa moist. NECK: No JVD, no neck masses. HEART: S1 and S2 heard. Regular rate and rhythm. No murmur, no gallop. RESPIRATORY SYSTEM: Normal AP diameter. No accessory muscle use. No wheezing, no crackles. Decreased breath sounds. ABDOMEN: Soft, bowel sounds present, nontender, no distention. CENTRAL NERVOUS SYSTEM: No facial droop. Speech is clear. Obeys simple commands. Moves extremities. EXTREMITIES: No edema, no erythema seen. Results & Data Results & Data ([facility]) Vital Signs (Past 12 Hours) Vital Signs Temp Pulse Pulse Resp BP Pulse Ox Pulse Ox 09/19/21 15:52 65 97 09/19/21 15:49 65 97 09/19/21 15:45 98 09/19/21 15:00 36.7 C 63 22 127/80 94 09/19/21 14:52 58 L 09/19/21 12:00 36.9 C 63 20 105/80 92 09/19/21 11:40 92 09/19/21 10:54 89 18 94 09/19/21 08:00 58 L 09/19/21 07:10 89 26 H 96 09/19/21 06:35 36.9 C 53 L 24 118/70 99
[2021-09-20] MEDS: LEVOTHYROXINE SODIUM 137 MCG TABLET PO SCH (06:21)
[2021-09-20] MEDS: ALBUTEROL HFA 8 GM INHALER INH SCH ×4 (07:12→19:09)
[2021-09-20] MEDS: dexAMETHasone 6 MG in SYRINGE 0 ML IV SCH (08:26)
[2021-09-20] MEDS: BENZONATATE 100 MG CAPSULE PO SCH ×3 (08:26→20:16)
[2021-09-20] MEDS: ENOXAPARIN INJ 40 MG/0.4 ML SYR SQ SCH ×2 (08:26→20:16)
[2021-09-20 09:14] LABS: Creatinine Clr Calc Pharmacy 237.9 ml/min; Est GFR (African American) 140.1 ml/min; Est GFR (Non-African American) 120.9 ml/min
[2021-09-20] MEDS: REMDESIVIR 100 MG in SODIUM CHLORIDE 0.9% 230 ML IV SCH (11:49)
--- NOTE | 2021-09-20 12:39 | Hospitalist Progress Note ---
Date of Service September 20, 2021 Assessment & Plan (1) Acute respiratory failure with hypoxia: (2) Pneumonia due to COVID-19 virus: (3) Morbid obesity with BMI of 50.0-59.9, adult: (4) Hypothyroidism: (5) Elevated transaminase level: Plan: 30 yr old M who has a significant PMH of morbid obesity and hypothyroidism who presents to ED 09/19 due to worsening cough, sob and low pulse ox readings x 1 day. He is being managed for the following: #. Acute hypoxic respiratory failure #. Pneumonia due to COVID-19 Patient reports having sings and symptoms since 09 September Admitting imagings: CXR: Multifocal patchy bilateral airspace opacities. This likely represents a viral pneumonia. CTA Chest: Mild cardiomegaly without pulmonary emboli. 2. Extensive bilateral groundglass and alveolar opacities are compatible with multifocal pneumonia, likely viral etiology. 3. Mild likely reactive mediastinal lymphadenopathy. 4. Hepatosplenomegaly with hepatic steatosis. BNP negative, admitting pro-Mars negative. Sx started 09/09, tested positive in [facility] 09/15 09/19: Patient given detailed information on the prognosis and the nature of Covid course. Explained the possibility of worst case scenario and he would like to go with everything possible including intubation. Nonvaccinated status Continue with dexamethasone 09/18 and remdesivir 09/18 Continue to monitor kidney and liver functions. pulmonary toilet with incentive spirometry, albuterol supportive care encourage self proning Patient requiring high oxygen, CRP 09/19 was 3.76, wean down oxygen as tolerated. Hepatic steatosis Elevated transaminase level Follow LFT level, downtrending. Possibly in setting of fatty liver disease due to morbid obesity on the background of Covid. Encouraged weight loss, diet and lifestyle modifications Hypothyroidism Continue levothyroxine DVT prophylaxis: Lovenox twice daily Dispo: PCU FULL CODE PCP: Alexey Admission and Anticipated Discharge Date Admission Date: September 18, 2021 Subjective Patient was seen and examined at bedside for follow-up of acute hypoxic respiratory failure and pneumonia due to COVID-19 virus infection. Patient was sitting up in bed, on 60 L high flow oxygen, NAD, no new acute events overnight. Patient was able to pull 2000 mL on incentive spirometer at bedside. Patient denies any fever/chills/chest pain/palpitations/belly pain/sore throat/other review of symptoms. Patient reports stable cough and diarrhea. Reports improving appetite. Physical Exam Physical Exam: GENERAL: Alert and oriented x3. NAD, on 60L at 82%, IS - 2000 ml. Morbidly obese. HEENT: No pallor, no icterus. Pupils equal, round and reactive to light. Oral mucosa moist. NECK: No JVD, no neck masses. HEART: S1 and S2 heard. Regular rate and rhythm. No murmur, no gallop. RESPIRATORY SYSTEM: Normal AP diameter. No accessory muscle use. No wheezing, no crackles. Decreased breath sounds. ABDOMEN: Soft, bowel sounds present, nontender, no distention. CENTRAL NERVOUS SYSTEM: No facial droop. Speech is clear. Obeys simple commands. Moves extremities. EXTREMITIES: No edema, no erythema seen. Results & Data Results & Data ([facility]) Vital Signs (Past 12 Hours) Vital Signs Temp Pulse Resp BP Pulse Ox Pulse Ox 09/20/21 12:23 36.9 C 69 21 106/71 97 09/20/21 11:11 57 L 24 94 09/20/21 08:04 37.1 C 60 20 107/62 98 09/20/21 07:13 57 L 22 98 09/20/21 04:20 89 L 09/20/21 04:01 37.0 C 62 20 115/69 97 09/20/21 02:16 60 22 96
[2021-09-20] MEDS ORDERED: FUROSEMIDE INJ 20 MG/2 ML VIAL IV ONE (13:01)
[2021-09-20] MEDS ORDERED: SODIUM CHLORIDE 0.65% NA SOLN 45 ML (OCEAN) ONE (15:36)
[2021-09-21] MEDS: LEVOTHYROXINE SODIUM 137 MCG TABLET PO SCH (05:36)
[2021-09-21 07:14] LABS: Creatinine Clr Calc Pharmacy 210.9 ml/min; Est GFR (African American) 133.3 ml/min
[2021-09-21] MEDS: ALBUTEROL HFA 8 GM INHALER INH SCH (07:34)
[2021-09-21] MEDS ORDERED: FUROSEMIDE INJ 20 MG/2 ML VIAL IV ONE (08:27)
[2021-09-21] MEDS: dexAMETHasone 6 MG in SYRINGE 0 ML IV SCH (09:00)
[2021-09-21] MEDS: BENZONATATE 100 MG CAPSULE PO SCH ×3 (09:01→21:21)
[2021-09-21] MEDS: ENOXAPARIN INJ 40 MG/0.4 ML SYR SQ SCH ×2 (09:01→21:21)
[2021-09-21] MEDS ORDERED: ALBUTEROL HFA 8 GM INHALER INH PRN (10:54)
[2021-09-21] MEDS: REMDESIVIR 100 MG in SODIUM CHLORIDE 0.9% 230 ML IV SCH (11:55)
--- NOTE | 2021-09-21 18:50 | Hospitalist Progress Note ---
Date of Service September 21, 2021 Assessment & Plan (1) Acute respiratory failure with hypoxia: (2) Pneumonia due to COVID-19 virus: (3) Morbid obesity with BMI of 50.0-59.9, adult: (4) Hypothyroidism: (5) Elevated transaminase level: Plan: 30 yr old M who has a significant PMH of morbid obesity and hypothyroidism who presents to ED 09/19 due to worsening cough, sob and low pulse ox readings x 1 day. He is being managed for the following: #. Acute hypoxic respiratory failure #. Pneumonia due to COVID-19 Patient reports having sings and symptoms since 09 September Admitting imagings: CXR: Multifocal patchy bilateral airspace opacities. This likely represents a viral pneumonia. CTA Chest: Mild cardiomegaly without pulmonary emboli. 2. Extensive bilateral groundglass and alveolar opacities are compatible with multifocal pneumonia, likely viral etiology. 3. Mild likely reactive mediastinal lymphadenopathy. 4. Hepatosplenomegaly with hepatic steatosis. BNP negative, admitting pro-Mars negative. Sx started 09/09, tested positive in [facility] 09/15 09/19: Patient given detailed information on the prognosis and the nature of Covid course. Explained the possibility of worst case scenario and he would like to go with everything possible including intubation. Nonvaccinated status Continue with dexamethasone 09/18 and remdesivir 09/18 Continue to monitor kidney and liver functions. pulmonary toilet with incentive spirometry, albuterol supportive care encourage self proning Patient requiring high oxygen, CRP 09/19 was 3.76, wean down oxygen as tolerated. Hepatic steatosis Elevated transaminase level Follow LFT level, LFT normalized. Possibly in setting of fatty liver disease due to morbid obesity on the background of Covid. Encouraged weight loss, diet and lifestyle modifications Hypothyroidism Continue levothyroxine DVT prophylaxis: Lovenox twice daily Dispo: PCU FULL CODE PCP: Alexey Admission and Anticipated Discharge Date Admission Date: September 18, 2021 Subjective Patient was seen and examined at bedside for follow-up of acute hypoxic respiratory failure and pneumonia due to COVID-19 virus infection. Patient was sitting up in bed, on 55 L high flow oxygen, NAD, no new acute events overnight. Patient was able to pull 1750 mL on incentive spirometer at bedside. Patient denies any fever/chills/chest pain/palpitations/belly pain/sore throat/other review of symptoms. Patient reports stable cough and no diarrhea. Reports improving appetite. Physical Exam Physical Exam: GENERAL: Alert and oriented x3. NAD, on 55L, IS - 1750 ml. Morbidly obese. HEENT: No pallor, no icterus. Pupils equal, round and reactive to light. Oral mucosa moist. NECK: No JVD, no neck masses. HEART: S1 and S2 heard. Regular rate and rhythm. No murmur, no gallop. RESPIRATORY SYSTEM: Normal AP diameter. No accessory muscle use. No wheezing, no crackles. Decreased breath sounds. ABDOMEN: Soft, bowel sounds present, nontender, no distention. CENTRAL NERVOUS SYSTEM: No facial droop. Speech is clear. Obeys simple commands. Moves extremities. EXTREMITIES: No edema, no erythema seen. Results & Data Results & Data ([facility]) Vital Signs (Past 12 Hours) Vital Signs Temp Pulse Pulse Resp BP Pulse Ox 09/21/21 15:34 88 22 99 09/21/21 14:55 52 L 09/21/21 11:42 36.6 C 67 20 125/76 94 09/21/21 11:28 105 H 20 92 09/21/21 07:46 36.9 C 68 20 132/68 90 09/21/21 07:41 56 L 09/21/21 07:36 60 22 98
[2021-09-22] MEDS: LEVOTHYROXINE SODIUM 137 MCG TABLET PO SCH (05:47)
[2021-09-22 06:36] LABS: Creatinine Clr Calc Pharmacy 226.6 ml/min; Est GFR (African American) 137.3 ml/min; Est GFR (Non-African American) 118.4 ml/min
[2021-09-22] MEDS: BENZONATATE 100 MG CAPSULE PO SCH ×3 (08:14→22:51)
[2021-09-22] MEDS: ENOXAPARIN INJ 40 MG/0.4 ML SYR SQ SCH ×2 (09:06→22:51)
[2021-09-22] MEDS: dexAMETHasone 6 MG in SYRINGE 0 ML IV SCH (09:06)
[2021-09-22] MEDS: REMDESIVIR 100 MG in SODIUM CHLORIDE 0.9% 230 ML IV SCH (12:38)
--- NOTE | 2021-09-22 18:01 | Hospitalist Progress Note ---
Date of Service September 22, 2021 Assessment & Plan (1) Acute respiratory failure with hypoxia: (2) Pneumonia due to COVID-19 virus: (3) Morbid obesity with BMI of 50.0-59.9, adult: (4) Hypothyroidism: (5) Elevated transaminase level: Plan: 30 yr old M who has a significant PMH of morbid obesity and hypothyroidism who presents to ED 09/19 due to worsening cough, sob and low pulse ox readings x 1 day. He is being managed for the following: #. Acute hypoxic respiratory failure #. Pneumonia due to COVID-19 Patient reports having sings and symptoms since 09 September Admitting imagings: CXR: Multifocal patchy bilateral airspace opacities. This likely represents a viral pneumonia. CTA Chest: Mild cardiomegaly without pulmonary emboli. 2. Extensive bilateral groundglass and alveolar opacities are compatible with multifocal pneumonia, likely viral etiology. 3. Mild likely reactive mediastinal lymphadenopathy. 4. Hepatosplenomegaly with hepatic steatosis. BNP negative, admitting pro-Mars negative. Sx started 09/09, tested positive in [facility] 09/15 09/19: Patient given detailed information on the prognosis and the nature of Covid course. Explained the possibility of worst case scenario and he would like to go with everything possible including intubation. Nonvaccinated status Continue with dexamethasone 09/18 and s/p remdesivir 09/18 - 09/22 Continue to monitor kidney and liver functions. pulmonary toilet with incentive spirometry, albuterol supportive care encourage self proning Patient requiring high oxygen, gradually trending down, wean down oxygen as tolerated. Hepatic steatosis Elevated transaminase level Follow LFT level, LFT normalized. Possibly in setting of fatty liver disease due to morbid obesity on the background of Covid. Encouraged weight loss, diet and lifestyle modifications Hypothyroidism Continue levothyroxine DVT prophylaxis: Lovenox twice daily Dispo: PCU FULL CODE PCP: Alexey Admission and Anticipated Discharge Date Admission Date: September 18, 2021 Subjective Patient was seen and examined at bedside for follow-up of acute hypoxic respiratory failure and pneumonia due to COVID-19 virus infection. Patient was sitting up in bed, on 45 L high flow oxygen, NAD, no new acute events overnight. Patient was able to pull above 2000 mL on incentive spirometer at bedside. Patient denies any fever/chills/chest pain/palpitations/belly pain/sore throat/other review of symptoms. Patient reports stable cough and no diarrhea. Reports improving appetite. Physical Exam Physical Exam: GENERAL: Alert and oriented x3. NAD, on 55L, IS - >2000 ml. Morbidly obese. HEENT: No pallor, no icterus. Pupils equal, round and reactive to light. Oral mucosa moist. NECK: No JVD, no neck masses. HEART: S1 and S2 heard. Regular rate and rhythm. No murmur, no gallop. RESPIRATORY SYSTEM: Normal AP diameter. No accessory muscle use. No wheezing, no crackles. Decreased breath sounds. ABDOMEN: Soft, bowel sounds present, nontender, no distention. CENTRAL NERVOUS SYSTEM: No facial droop. Speech is clear. Obeys simple commands. Moves extremities. EXTREMITIES: No edema, no erythema seen. Results & Data Results & Data ([facility]) Vital Signs (Past 12 Hours) Vital Signs Temp Pulse Pulse Pulse Resp BP Pulse Ox 09/22/21 16:00 37.0 C 58 L 24 104/62 90 09/22/21 15:43 74 25 H 90 09/22/21 15:15 67 09/22/21 11:20 36.5 C 71 20 132/76 87 L 09/22/21 10:58 59 L 22 90 09/22/21 07:30 57 L 22 92 09/22/21 07:28 37.1 C 63 14 106/48 L 93 09/22/21 07:20 55 L
[2021-09-23] MEDS: LEVOTHYROXINE SODIUM 137 MCG TABLET PO SCH (05:45)
[2021-09-23] MEDS: BENZONATATE 100 MG CAPSULE PO SCH ×3 (07:53→22:36)
[2021-09-23] MEDS: guaiFENesin 600 MG TABCR PO PRN (07:53)
[2021-09-23] MEDS: dexAMETHasone 6 MG in SYRINGE 0 ML IV SCH (07:53)
[2021-09-23] MEDS: ENOXAPARIN INJ 40 MG/0.4 ML SYR SQ SCH ×2 (07:53→22:36)
[2021-09-23 08:14] LABS: Creatinine Clr Calc Pharmacy 185.9 ml/min; Est GFR (African American) 118.6 ml/min; Est GFR (Non-African American) 102.3 ml/min
[2021-09-23] MEDS ORDERED: FUROSEMIDE INJ 20 MG/2 ML VIAL IV ONE (08:52)
--- NOTE | 2021-09-23 17:16 | Hospitalist Progress Note ---
Date of Service September 23, 2021 Assessment & Plan (1) Acute respiratory failure with hypoxia: (2) Pneumonia due to COVID-19 virus: (3) Morbid obesity with BMI of 50.0-59.9, adult: (4) Hypothyroidism: (5) Elevated transaminase level: Plan: 30 yr old M who has a significant PMH of morbid obesity and hypothyroidism who presents to ED 09/19 due to worsening cough, sob and low pulse ox readings x 1 day. He is being managed for the following: #. Acute hypoxic respiratory failure #. Pneumonia due to COVID-19 Patient reports having sings and symptoms since 09 September Admitting imagings: CXR: Multifocal patchy bilateral airspace opacities. This likely represents a viral pneumonia. CTA Chest: Mild cardiomegaly without pulmonary emboli. 2. Extensive bilateral groundglass and alveolar opacities are compatible with multifocal pneumonia, likely viral etiology. 3. Mild likely reactive mediastinal lymphadenopathy. 4. Hepatosplenomegaly with hepatic steatosis. BNP negative, admitting pro-Mars negative. Sx started 09/09, tested positive in [facility] 09/15 09/19: Patient given detailed information on the prognosis and the nature of Covid course. Explained the possibility of worst case scenario and he would like to go with everything possible including intubation. Nonvaccinated status Continue with dexamethasone 09/18 and s/p remdesivir 09/18 - 09/22 lasinx as needed, one dose today, BMP as needed. pulmonary toilet with incentive spirometry, albuterol supportive care encourage self proning Patient requiring high oxygen, wean down oxygen as tolerated. Hepatic steatosis Elevated transaminase level Follow LFT level, LFT normalized. Possibly in setting of fatty liver disease due to morbid obesity on the background of Covid. Encouraged weight loss, diet and lifestyle modifications Hypothyroidism Continue levothyroxine DVT prophylaxis: Lovenox twice daily Dispo: PCU FULL CODE PCP: Alexey Admission and Anticipated Discharge Date Admission Date: September 18, 2021 Subjective Patient was seen and examined at bedside for follow-up of acute hypoxic respiratory failure and pneumonia due to COVID-19 virus infection. Patient was sitting up in bed, on 55 L high flow oxygen, NAD, no new acute events overnight. Patient was able to pull above 2250 mL on incentive spirometer at bedside. Patient denies any fever/chills/chest pain/palpitatio ns/belly pain/sore throat/other review of symptoms. Patient reports improving cough and no diarrhea. Reports eating okay. Physical Exam Physical Exam: GENERAL: Alert and oriented x3. NAD, on 55L, IS - >2250 ml. Morbidly obese. HEENT: No pallor, no icterus. Pupils equal, round and reactive to light. Oral mucosa moist. NECK: No JVD, no neck masses. HEART: S1 and S2 heard. Regular rate and rhythm. No murmur, no gallop. RESPIRATORY SYSTEM: Normal AP diameter. No accessory muscle use. No wheezing, no crackles. Decreased breath sounds R>L ABDOMEN: Soft, bowel sounds present, nontender, no distention. CENTRAL NERVOUS SYSTEM: No facial droop. Speech is clear. Obeys simple commands. Moves extremities. EXTREMITIES: No edema, no erythema seen. Results & Data Results & Data ([facility]) Vital Signs (Past 12 Hours) Vital Signs Temp Pulse Pulse Resp BP Pulse Ox 09/23/21 15:56 37.3 C 74 20 105/54 L 95 09/23/21 14:00 65 09/23/21 11:47 36.7 C 77 22 124/83 93 09/23/21 08:00 22 92 09/23/21 07:43 37.0 C 67 22 100/60 93 09/23/21 07:11 54 L
[2021-09-24] MEDS: LEVOTHYROXINE SODIUM 137 MCG TABLET PO SCH (06:09)
[2021-09-24] MEDS: BENZONATATE 100 MG CAPSULE PO SCH ×3 (08:07→19:55)
[2021-09-24] MEDS: dexAMETHasone 6 MG in SYRINGE 0 ML IV SCH (08:09)
[2021-09-24] MEDS: ENOXAPARIN INJ 40 MG/0.4 ML SYR SQ SCH ×2 (08:10→19:55)
[2021-09-24 08:29] LABS: BUN Creatinine Ratio 23.4 (10-20); Calcium 8.8 mg/dl (8.5-10.1); Creatinine Clr Calc Pharmacy 192.6 ml/min; Est GFR (African American) 124.7 ml/min; Est GFR (Non-African American) 107.6 ml/min
[2021-09-24 09:34] LABS: Potassium 3.8 mmol/L (3.5-5.1)
--- NOTE | 2021-09-24 10:25 | Hospitalist Progress Note ---
Date of Service September 24, 2021 Assessment & Plan (1) Acute respiratory failure with hypoxia: (2) Pneumonia due to COVID-19 virus: (3) Morbid obesity with BMI of 50.0-59.9, adult: (4) Hypothyroidism: (5) Elevated transaminase level: Plan: 30 yr old M who has a significant PMH of morbid obesity and hypothyroidism who presents to ED 09/19 due to worsening cough, sob and low pulse ox readings x 1 day. He is being managed for the following: #. Acute hypoxic respiratory failure #. Pneumonia due to COVID-19 Patient reports having sings and symptoms since 09 September Admitting imagings: CXR: Multifocal patchy bilateral airspace opacities. This likely represents a viral pneumonia. CTA Chest: Mild cardiomegaly without pulmonary emboli. 2. Extensive bilateral groundglass and alveolar opacities are compatible with multifocal pneumonia, likely viral etiology. 3. Mild likely reactive mediastinal lymphadenopathy. 4. Hepatosplenomegaly with hepatic steatosis. BNP negative, admitting pro-Mars negative. Sx started 09/09, tested positive in [facility] 09/15 09/19: Patient given detailed information on the prognosis and the nature of Covid course. Explained the possibility of worst case scenario and he would like to go with everything possible including intubation. Nonvaccinated status Continue with dexamethasone until 09/27 and Completed remdesivir 09/22 lasix as needed, pulmonary toilet with incentive spirometry, albuterol supportive care encourage self proning Patient requiring high oxygen, wean down oxygen as tolerated. Hepatic steatosis Elevated transaminase level Follow LFT level, LFT normalized. Possibly in setting of fatty liver disease due to morbid obesity on the background of Covid. Encouraged weight loss, diet and lifestyle modifications Hypothyroidism Continue levothyroxine DVT prophylaxis: Lovenox twice daily Labs reviewed Dispo: PCU FULL CODE PCP: Alexey CASAS-No Headache, No Visual Changes, No Nausea, No Vomiting, No Fever, No Chills, No Neck Pain or Stiffness, No Chest Pain, No Palpitations, +SOB, +DAY, +Cough, No Sputum, No Wheezing, No Abdominal Pain, No Diarrhea, No Hematemesis, No Hemoptysis, No Unexpected Weight Loss, No Flank pain, No Melena, No Hematochezia, No Frequency, No Urgency, No Burning, No Hematuria, No Rashes, No Diaphoresis. Appetite is Normal Physical Exam Gen-AAO x 3, NAD, Afebrile, Obese Head-NCAT, EOMI, PERRLA, Anicteric Sclera, No Posterior Pharyngeal Erythema Neck-Supple, No JVD, No Thyromegaly, No Masses, No LAD, No Bruits Lungs-Clear to Auscultation Bilaterally, Diminished, No Rales, No Rhonchi, No Wheezing, No Crepitus Chest-No S4, +S1, +S2, No S3, No Murmurs, No Rubs, No Gallops, No Ectopy Abdomen-Soft, Bowel Sounds Present, Non Tender, Non Distended, No Hepatomegaly, No Splenomegaly, No Palpable Masses, No Rebound, No Rigidity, No Guarding Musculoskeletal-Full Range of Motion Bilaterally, No CVAT Extremities-No Cyanosis, No Clubbing, No Edema Nuero-Cranial Nerves II-XII grossly intact, Motor WNL, DTRs WNL, Strength WNL, Non Focal Psych-Normal Mood Admission and Anticipated Discharge Date Admission Date: September 18, 2021 Subjective Patient was seen and examined at bedside for follow-up of acute hypoxic respiratory failure and pneumonia due to COVID-19 virus infection. Patient was sitting up in bed, on 60 L/100% high flow oxygen, NAD, no new acute events overnight. Results & Data Results & Data ([facility]) Vital Signs (Past 12 Hours) Vital Signs Temp Pulse Pulse Pulse Resp BP BP 09/24/21 08:18 36.6 C 88 24 107/67 09/24/21 08:01 70 22 09/24/21 07:00 64 09/24/21 04:18 24 09/24/21 03:48 51 L 25 H 09/24/21 03:28 36.8 C 53 L 20 93/57 L 09/23/21 22:59 60 24 09/23/21 22:32 36.8 C 67 19 106/60 Pulse Ox 09/24/21 08:18 89 L 09/24/21 08:01 90 09/24/21 07:00 09/24/21 04:18 90 09/24/21 03:48 92 09/24/21 03:28 93 09/23/21 22:59 94 09/23/21 22:32 93
[2021-09-24] MEDS: OXYMETAZOLINE 0.05% 30 ML BTL PRN (11:09)
[2021-09-25] MEDS: LEVOTHYROXINE SODIUM 137 MCG TABLET PO SCH (05:57)
[2021-09-25 07:00] LABS: Hematocrit (blood only) 45.4 % (42-52); Hemoglobin 16.5 g/dL (14.0-18.0); Mean Corpuscular Hemoglobin 34.2 pg (25-34); Mean Corpuscular Hgb Conc 36.3 g/dL (32-36); Mean Corpuscular Volume 94.2 fL (80-100); Mean Platelet Volume 9.7 fL (7.4-10.4); Platelet Count 429 K/uL (130-400); RDW Coefficient of Variation 12.5 % (11.5-14.5); RDW Standard Deviation 42.8 fL (36.4-46.3); Red Blood Count 4.82 M/uL (4.7-6.1); White Blood Count 14.22 K/uL (4.8-10.8)
[2021-09-25 07:33] LABS: BUN Creatinine Ratio 20.9 (10-20); Calcium 7.9 mg/dl (8.5-10.1); Creatinine Clr Calc Pharmacy 208.4 ml/min; Est GFR (African American) 133.9 ml/min; Est GFR (Non-African American) 115.6 ml/min
[2021-09-25] MEDS: BENZONATATE 100 MG CAPSULE PO SCH ×3 (07:49→20:37)
[2021-09-25] MEDS: dexAMETHasone 6 MG in SYRINGE 0 ML IV SCH (07:49)
[2021-09-25] MEDS: ENOXAPARIN INJ 40 MG/0.4 ML SYR SQ SCH (07:50)
[2021-09-25] MEDS: OXYMETAZOLINE 0.05% 30 ML BTL PRN (07:50)
[2021-09-25 12:04] LABS: C Reactive Protein 1.37 mg/dl (0-0.5)
--- NOTE | 2021-09-25 12:26 | Hospitalist Progress Note ---
Date of Service September 25, 2021 Assessment & Plan (1) Acute respiratory failure with hypoxia: (2) Pneumonia due to COVID-19 virus: (3) Morbid obesity with BMI of 50.0-59.9, adult: (4) Hypothyroidism: (5) Elevated transaminase level: Plan: 30 yr old M who has a significant PMH of morbid obesity and hypothyroidism who presents to ED 09/19 due to worsening cough, sob and low pulse ox readings x 1 day. He is being managed for the following: #. Acute hypoxic respiratory failure #. Pneumonia due to COVID-19 Patient reports having sings and symptoms since 09 September Admitting imagings: CXR: Multifocal patchy bilateral airspace opacities. This likely represents a viral pneumonia. CTA Chest: Mild cardiomegaly without pulmonary emboli. 2. Extensive bilateral groundglass and alveolar opacities are compatible with multifocal pneumonia, likely viral etiology. 3. Mild likely reactive mediastinal lymphadenopathy. 4. Hepatosplenomegaly with hepatic steatosis. BNP negative, admitting pro-Mars negative. Sx started 09/09, tested positive in [facility] 09/15 09/19: Patient given detailed information on the prognosis and the nature of Covid course. Explained the possibility of worst case scenario and he would like to go with everything possible including intubation. Nonvaccinated status Continue with dexamethasone until 09/27 and Completed remdesivir 09/22 lasix as needed, pulmonary toilet with incentive spirometry, albuterol supportive care encourage self proning Patient requiring high oxygen, wean down oxygen as tolerated. Hepatic steatosis Elevated transaminase level Follow LFT level, LFT normalized. Possibly in setting of fatty liver disease due to morbid obesity on the background of Covid. Encouraged weight loss, diet and lifestyle modifications Hypothyroidism Continue levothyroxine DVT prophylaxis: Lovenox twice daily Labs reviewed Dispo: PCU on 55L 90% FiO2, Pulm to see, O2 req creeping up FULL CODE PCP: Alexey ROS-No Headache, No Visual Changes, No Nausea, No Vomiting, No Fever, No Chills, No Neck Pain or Stiffness, No Chest Pain, No Palpitations, +SOB, +DAY, +Cough, No Sputum, No Wheezing, No Abdominal Pain, No Diarrhea, No Hematemesis, No Hemoptysis, No Unexpected Weight Loss, No Flank pain, No Melena, No Hematochezia, No Frequency, No Urgency, No Burning, No Hematuria, No Rashes, No Diaphoresis. Appetite is Normal, Neede O2 bumped up last PM Physical Exam Gen-AAO x 3, NAD, Afebrile, Obese Head-NCAT, EOMI, PERRLA, Anicteric Sclera, No Posterior Pharyngeal Erythema Neck-Supple, No JVD, No Thyromegaly, No Masses, No LAD, No Bruits Lungs-Clear to Auscultation Bilaterally, Diminished, No Rales, No Rhonchi, No Wheezing, No Crepitus Chest-No S4, +S1, +S2, No S3, No Murmurs, No Rubs, No Gallops, No Ectopy Abdomen-Soft, Bowel Sounds Present, Non Tender, Non Distended, No Hepatomegaly, No Splenomegaly, No Palpable Masses, No Rebound, No Rigidity, No Guarding Musculoskeletal-Full Range of Motion Bilaterally, No CVAT Extremities-No Cyanosis, No Clubbing, No Edema Nuero-Cranial Nerves II-XII grossly intact, Motor WNL, DTRs WNL, Strength WNL, Non Focal Psych-Normal Mood Admission and Anticipated Discharge Date Admission Date: September 18, 2021 Subjective Patient was seen and examined at bedside for follow-up of acute hypoxic respirat ory failure and pneumonia due to COVID-19 virus infection. Patient was sitting up in bed, on 55 L/90% high flow oxygen, NAD, more sob overnight. Results & Data Results & Data ([facility]) Vital Signs (Past 12 Hours) Vital Signs Temp Pulse Pulse Pulse Resp BP Pulse Ox 09/25/21 11:08 36.8 C 83 24 105/67 91 09/25/21 08:49 56 L 09/25/21 07:59 86 24 90 09/25/21 07:52 36.1 C L 73 24 128/69 92 09/25/21 04:00 09/25/21 03:48 63 20 88 L 09/25/21 03:42 36.8 C 55 L 20 97/50 L 90 Pulse Ox 09/25/21 11:08 09/25/21 08:49 09/25/21 07:59 09/25/21 07:52 09/25/21 04:00 96 09/25/21 03:48 09/25/21 03:42
[2021-09-25] MEDS: guaiFENesin 600 MG TABCR PO PRN (13:30)
[2021-09-25] MEDS: FUROSEMIDE 40 MG/4 ML VIAL IV SCH ×2 (13:40→20:37)
[2021-09-25] MEDS ORDERED: dexAMETHasone 14 MG in SYRINGE 0 ML IV ONE (17:44)
--- NOTE | 2021-09-25 17:54 | Pulmonary Consultation ---
Date of Consultation September 25, 2021 Assessment & Plan (1) Pneumonia due to COVID-19 virus: (2) Acute hypoxemic respiratory failure due to COVID-19: (3) Morbid obesity with BMI of 50.0-59.9, adult: (4) D-dimer, elevated: 30-year-old male with a history of morbid obesity and hypothy roidism now with COVID-19 viral pneumonia. He has worsening hypoxemic respiratory failure due to COVID-19 viral pneumonia His CRP is 1.37. His D-dimer was elevated. We will obtain a D-dimer today and a follow-up chest x-ray. If D-dimer continues to be elevated or worsening, will start the patient on a heparin infusion given concern for PE. We will increase the dose of Decadron to 20 mg daily per the DEXA ARDS protocol for 5 days. Please then transition him to 10 mg of Decadron for 5 days once the initial 5- day course is completed. Will give additional 14 mg of Decadron today for a total of 20 mg today as he received 6 mg earlier. Will initiate CPAP therapy at night as there is a high probability that he has sleep apnea. Would recommend outpatient polysomnography. Discussed with bedside nurse. Thank you for the consult. We will continue to follow with you. History of Present Illness Reason for Consultation: COVID-19 and severe hypoxemic respiratory failure Attending Physician: Jake Pink DO History of Present Illness 30-year-old male with past medical history of morbid obesity, hypothyroidism and likely NATASHA who is presenting to the hospital due to hypoxia. Presented to the ER 09/18. Notes that he had symptoms for 2 weeks prior to his hospitalization. He denies any shortness of breath at present. He did have cough and shortness of breath on hospital admission. He has had persistent hypoxia while in the hospital and in fact has increasing hypoxemia. He is currently requiring 90% FiO2 at a flow rate of 55 L. He is sitting up in bed and eating his dinner. He denies any chest pain, fevers or chills at this point. Denies any lower extremity edema. Pulmonary was consulted to assist in management of COVID-19 hypoxemia. He has not had any obvious signs of bacterial infection as his pro-Mars was negative. He did complete a course of remdesivir. He had a chest CTA completed 09/18/2021 which demonstrated mild cardiomegaly. No pulmonary bullae seen. Extensive bilateral groundglass opacities seen. His last chest x-ray was 09/19 which demonstrated extensive bilateral infiltrates. D-dimer 09/18 was 1520. Currently on 40 mg twice daily of Lovenox. CRP today 1.37. Allergies Allergy/AdvReac Type Severity Reaction Status Date / Time Penicillins Allergy Mild PENICILLIN Verified 09/18/21 13:36 AND AMOXICILLIN-SOB HIVES amoxicillin Allergy Hives Unverified 09/18/21 13:36 Home Medications Medication Instructions Recorded Confirmed Type azithromycin 250 mg tablet 0 mg PO DAILY 09/18/21 09/18/21 History levothyroxine 137 mcg tablet 137 mcg PO DAILY 09/18/21 09/18/21 History prednisone 20 mg tablet 20 mg PO DAILY 09/18/21 09/18/21 History Patient History Medical History (Updated 09/25/21 @ 17:51 by Amarjit Campbell MD) Acute hypoxemic respiratory failure due to COVID-19 D-dimer, elevated History of back problems HLD (hyperlipidemia) Hypothyroidism Obesity Surgical History H/O elbow surgery History of arthroscopic knee surgery Hx of tonsillectomy Family History Mother Multiple sclerosis Father Asthma Social History Smoking Status: Never smoker Second Hand Exposure: No; Do You Dip or Chew Tobacco: Yes; Tobacco Cessation Education Requested by Patient: No Hx Alcohol Use: Yes Alcohol type: beer and hard liquor Hx Substance Use: No Preferred Language: Tunisian Communication Ability: Effective Scallop Shucker Required: No Beliefs That Will Affect Care: None marital status: Single Current Living Situation: Spouse current occupational status: employed current occupation: [employer] Other Information That Helps Us Care for You: No Feels Safe at Home: Yes Safety Concerns: Feels Safe At This Time Assistive Devices: Oxygen - Continuous Review of Systems Review of Systems: All systems reviewed & are unremarkable except as noted in HPI & below Physical Exam Physical Exam: Constitutional: Patient appears to be of their stated age. Patient is in no apparent distress. Patient is well-developed. Eyes: Pupils are equal round and reactive to light. Conjunctivae are normal. Anicteric sclera. Ears nose, mouth and throat: No obvious facial deformities. Neck: Trachea is midline. Visual inspection is normal. Respiratory: Diminished at the bases bilaterally. Cardiovascular: Regular rate and rhythm. No murmurs. No edema. Gastrointestinal: Normal bowel sounds, soft, nontender and nondistended. No hepatosplenomegaly noted. Musculoskeletal: No cyanosis. Patient is able to move all extremities. Strength is 5 out of 5 in the upper and lower extremities. Skin: No rashes, warm dry and intact. Neurologic: No obvious focal neurological deficits seen. Psychiatric: Alert and oriented x3 with a euthymic affect. Results & Data Results & Data ([facility]) Vital Signs (Past 12 Hours) Vital Signs Temp Pulse Pulse Pulse Resp BP Pulse Ox 09/25/21 15:54 79 22 91 09/25/21 15:33 36.5 C 83 23 116/65 91 09/25/21 14:54 60 09/25/21 11:08 36.8 C 83 24 105/67 91 09/25/21 08:49 56 L 09/25/21 07:59 86 24 90 09/25/21 07:52 36.1 C L 73 24 128/69 92 PG Care Time/CCT Total # of Minutes Spent Total Time Spent with Patient: Total time spent is greater than 50% in coordination of care (as documented) at patient's floor/unit and/or counseling patient: Coding Level of Care Code 58956 Inpt Consult Level 5 Diagnoses Pneumonia due to COVID-19 virus U07.1; J12.82 Acute hypoxemic respiratory failure due to COVID-19 U07.1; J96.01 Morbid obesity with BMI of 50.0-59.9, adult E66.01; Z68.43 D-dimer, elevated R79.89
[2021-09-25] MEDS ORDERED: dexAMETHasone 14 MG in DEXTROSE 5% 25 ML IV ONE (18:15)
--- NOTE | 2021-09-25 18:46 | XRay Report ---
XR chest 1V portable CLINICAL HISTORY: worsening hypoxia TECHNIQUE: Single frontal radiograph of the chest was obtained. Comparison: Comparison is made to chest one view 09/19/2021 FINDINGS: No lines and tubes are seen. The cardiomediastinal silhouette is stable. Multifocal airspace opacitie s are seen. No evidence of pleural effusion or pneumothorax. IMPRESSION: Multifocal pneumonia is again seen, similar in appearance to prior exam. ACT 112: Negative or not required by law. Electronically signed by: Tyron Keys M.D. 09/25/2021 6:44 PM
[2021-09-25 19:08] LABS: D Dimer 1900 ug/L FEU (0-500)
[2021-09-25] MEDS ORDERED: Heparin IV Adult Wt-Based Standard *NO* Bolus Protocol IV ONE (19:12)
[2021-09-25 20:49] LABS: Partial Thromboplastin Time 28.4 Seconds (21.0-31.0); Prothrombin Time 10.4 Seconds (9.0-12.0)
[2021-09-25 20:51] LABS: Basophils # (auto) 0.04 K/uL (0-0.2); Basophils % (auto) 0.3 %; Eosinophils % (auto) 0.6 %; Hematocrit (blood only) 47.7 % (42-52); Hemoglobin 17.1 g/dL (14.0-18.0); Immature Granulocytes # (auto) 0.36 K/uL (0.00-0.02); Immature Granulocytes % (auto) 2.3 %; Lymphocytes # (auto) 0.99 K/uL (1.2-3.4); Lymphocytes % (auto) 6.3 %; Mean Corpuscular Hemoglobin 33.9 pg (25-34); Mean Corpuscular Volume 94.6 fL (80-100); Mean Platelet Volume 9.9 fL (7.4-10.4); Monocytes % (auto) 6.3 %; Neutrophils # (auto) 13.33 K/uL (1.4-6.5); Neutrophils % (auto) 84.2 %; Platelet Count 466 K/uL (130-400); RDW Coefficient of Variation 12.6 % (11.5-14.5); RDW Standard Deviation 43.3 fL (36.4-46.3); Red Blood Count 5.04 M/uL (4.7-6.1); White Blood Count 15.82 K/uL (4.8-10.8)
[2021-09-25 21:02] LABS: Mean Corpuscular Hgb Conc 35.8 g/dL (32-36)
[2021-09-25] MEDS: HEPARIN SODIUM/DEXTROSE 25,000 UNITS/500 ML BAG IV SCH (21:24)
[2021-09-26 03:35] LABS: Hematocrit (blood only) 47.5 % (42-52); Hemoglobin 17.6 g/dL (14.0-18.0); Mean Corpuscular Hemoglobin 34.6 pg (25-34); Mean Corpuscular Hgb Conc 37.1 g/dL (32-36); Mean Corpuscular Volume 93.5 fL (80-100); Mean Platelet Volume 9.6 fL (7.4-10.4); Platelet Count 489 K/uL (130-400); RDW Coefficient of Variation 12.6 % (11.5-14.5); Red Blood Count 5.08 M/uL (4.7-6.1); White Blood Count 18.97 K/uL (4.8-10.8)
[2021-09-26 03:54] LABS: BUN Creatinine Ratio 25.3 (10-20); Calcium 9.4 mg/dl (8.5-10.1); Est GFR (African American) 129.7 ml/min; Est GFR (Non-African American) 111.9 ml/min; Partial Thromboplastin Ratio 1.6; Partial Thromboplastin Time 44.7 Seconds (21.0-31.0); Potassium 4.6 mmol/L (3.5-5.1)
[2021-09-26] MEDS: LEVOTHYROXINE SODIUM 137 MCG TABLET PO SCH (05:40)
[2021-09-26] MEDS: FUROSEMIDE 40 MG/4 ML VIAL IV SCH ×3 (08:01→14:32)
[2021-09-26] MEDS: BENZONATATE 100 MG CAPSULE PO SCH ×3 (08:04→23:12)
[2021-09-26] MEDS: dexAMETHasone 20 MG in DEXTROSE 5% 25 ML IV SCH (08:05)
[2021-09-26] MEDS ORDERED: Nursing to Pharmacy Communication SCH (08:45)
[2021-09-26] MEDS: HEPARIN SODIUM/DEXTROSE 25,000 UNITS/500 ML BAG IV SCH ×3 (09:53→19:44)
--- NOTE | 2021-09-26 09:53 | Hospitalist Progress Note ---
Date of Service September 26, 2021 Assessment & Plan (1) Acute respiratory failure with hypoxia: (2) Pneumonia due to COVID-19 virus: (3) Morbid obesity with BMI of 50.0-59.9, adult: (4) Hypothyroidism: (5) Elevated transaminase level: Plan: 30 yr old M who has a significant PMH of morbid obesity and hypothyroidism who presents to ED 09/19 due to worsening cough, sob and low pulse ox readings x 1 day. He is being managed for the following: #. Acute hypoxic respiratory failure #. Pneumonia due to COVID-19 Patient reports having sings and symptoms since 09 September Admitting imagings: CXR: Multifocal patchy bilateral airspace opacities. This likely represents a viral pneumonia. CTA Chest: Mild cardiomegaly without pulmonary emboli. 2. Extensive bilateral groundglass and alveolar opacities are compatible with multifocal pneumonia, likely viral etiology. 3. Mild likely reactive mediastinal lymphadenopathy. 4. Hepatosplenomegaly with hepatic steatosis. BNP negative, admitting pro-Mars negative. Sx started 09/09, tested positive in [facility] 09/15 09/19: Patient given detailed information on the prognosis and the nature of Covid course. Explained the possibility of worst case scenario and he would like to go with everything possible including intubation. Nonvaccinated status Continue with dexamethasone until 09/27, Completed remdesivir 09/22 lasix BID pulmonary toilet with incentive spirometry, albuterol supportive care encourage self proning Patient requiring high oxygen, wean down oxygen as tolerated. Hepatic steatosis Elevated transaminase level Follow LFT level, LFT normalized. Possibly in setting of fatty liver disease due to morbid obesity on the background of Covid. Encouraged weight loss, diet and lifestyle modifications Hypothyroidism Continue levothyroxine DVT prophylaxis: Lovenox twice daily Labs reviewed Dispo: PCU on 55L 90% FiO2, Pulm on case, rec [place] for Ecmo, but not a candidate, O2 req creeping up FULL CODE PCP: Alexey CASAS-No Headache, No Visual Changes, No Nausea, No Vomiting, No Fever, No Chills, No Neck Pain or Stiffness, No Chest Pain, No Palpitations, +SOB, +DAY, +Cough, No Sputum, No Wheezing, No Abdominal Pain, No Diarrhea, No Hematemesis, No Hemoptysis, No Unexpected Weight Loss, No Flank pain, No Melena, No Hematochezia, No Frequency, No Urgency, No Burning, No Hematuria, No Rashes, No Diaphoresis. Appetite is Normal, Neede O2 bumped up last PM Physical Exam Gen-AAO x 3, NAD, Afebrile, Obese Head-NCAT, EOMI, PERRLA, Anicteric Sclera, No Posterior Pharyngeal Erythema Neck-Supple, No JVD, No Thyromegaly, No Masses, No LAD, No Bruits Lungs-Clear to Auscultation Bilaterally, Diminished, No Rales, No Rhonchi, No Wheezing, No Crepitus Chest-No S4, +S1, +S2, No S3, No Murmurs, No Rubs, No Gallops, No Ectopy Abdomen-Soft, Bowel Sounds Present, Non Tender, Non Distended, No Hepatomegaly, No Splenomegaly, No Palpable Masses, No Rebound, No Rigidity, No Guarding Musculoskeletal-Full Range of Motion Bilaterally, No CVAT Extremities-No Cyanosis, No Clubbing, No Edema Nuero-Cranial Nerves II-XII grossly intact, Motor WNL, DTRs WNL, Strength WNL, Non Focal Psych-Normal Mood Admission and Anticipated Discharge Date Admission Date: September 18, 2021 Subjective Patient was seen and examined at bedside for follow-up of acute hypoxic respiratory failure and pneumonia due to COVID-19 virus infection. Patient was sitting up in bed, on 55 L/90% high flow oxygen, NAD, more sob overnight. Results & Data Results & Data ([facility]) Vital Signs (Past 12 Hours) Vital Signs Temp Pulse Pulse Pulse Resp BP BP 09/26/21 08:43 49 L 09/26/21 07:38 82 20 09/26/21 07:13 37.2 C 63 24 100/58 L 09/26/21 04:00 09/26/21 03:40 63 29 H 09/26/21 03:30 36.6 C 65 18 122/79 09/25/21 23:40 36.5 C 60 20 114/68 09/25/21 22:30 77 30 H 09/25/21 22:18 75 Pulse Ox Pulse Ox 09/26/21 08:43 09/26/21 07:38 94 09/26/21 07:13 97 09/26/21 04:00 96 09/26/21 03:40 96 09/26/21 03:30 96 09/25/21 23:40 92 09/25/21 22:30 93 09/25/21 22:18
[2021-09-26 10:39] LABS: Partial Thromboplastin Ratio 1.4; Partial Thromboplastin Time 38.6 Seconds (21.0-31.0)
--- NOTE | 2021-09-26 14:50 | Pulmonology Progress Note ---
Date of Service September 26, 2021 Assessment & Plan (1) Pneumonia due to COVID-19 virus: (2) Acute hypoxemic respiratory failure due to COVID-19: (3) Morbid obesity with BMI of 50.0-59.9, adult: (4) D-dimer, elevated: Plan: 30-year-old male with a history of morbid obesity and hypothyroidism now with COVID-19 viral pneumonia. Day #2 of high-dose Decadron (20 mg). We will continue for 5 days total and then decrease to 10 mg Decadron for 5 days. D-dimer 3 was significantly elevated to 1900. Heparin infusion initiated 09/25. Will obtain ultrasound of the lower extremities today. Will consider CT of his chest with contrast. Chest CTA from 09/18 again reviewed with bilateral groundglass opacities, but no pulmonary embolism seen. Continue proning and pulmonary toileting as much as possible. Continue the use of alternating high flow nasal cannula and CPAP therapy. Chest x-ray from 09/25 with multifocal pneumonia seen similar to prior exam. Patient informed that his condition remains critical and that unfortunately he has not had significant improvement over the last 48 hours. Discussed with bedside nurse. Thank you for the consult. We will continue to follow with you. Admission and Anticipated Discharge Date Admission Date: September 18, 2021 Subjective Patient seen and examined this afternoon. He continues to have significant oxygen requirement and is currently on 55 L of supplemental oxygen at 90% FiO2. He denies any changes in his symptomatic dyspnea. He notes that he feels as if he is "turning the corner". His appetite remains good. He denies any swelling in his extremities. No chest pain or fevers. He continues to try proning as much as he can. Upon interview he was laying on his right semirecumbent side. Review of Systems Review of Systems: All systems reviewed & are unremarkable except as noted in HPI & below Physical Exam Physical Exam: Constitutional: Patient appears to be of their stated age. Patient is in no apparent distress. More lethargic appearing today. Eyes: Pupils are equal round and reactive to light. Conjunctivae are normal. Anicteric sclera. Ears nose, mouth and throat: No obvious facial deformities. Neck: Trachea is midline. Visual inspection is normal. Respiratory: Diminished at the bases bilaterally. Cardiovascular: Regular rate and rhythm. No murmurs. No edema. Gastrointestinal: Normal bowel sounds, soft, nontender and nondistended. No hepatosplenomegaly noted. Musculoskeletal: Patient is able to move all extremities. Strength is 5 out of 5 in the upper and lower extremities. Skin: No rashes, warm dry and intact. Neurologic: No obvious focal neurological deficits seen. Psychiatric: Alert and oriented x3 with a euthymic affect. Results & Data Results & Data ([facility]) Vital Signs (Past 12 Hours) Vital Signs Temp Pulse Pulse Pulse Resp BP BP 09/26/21 11:06 36.8 C 88 23 130/72 09/26/21 10:09 77 20 09/26/21 08:43 49 L 09/26/21 07:38 82 20 09/26/21 07:13 37.2 C 63 24 100/58 L 09/26/21 04:00 09/26/21 03:40 63 29 H 09/26/21 03:30 36.6 C 65 18 122/79 Pulse Ox Pulse Ox 09/26/21 11:06 92 09/26/21 10:09 93 09/26/21 08:43 09/26/21 07:38 94 09/26/21 07:13 97 09/26/21 04:00 96 09/26/21 03:40 96 09/26/21 03:30 96 PG Care Time/CCT Total # of Minutes Spent Total Time Spent with Patient: Total time spent is greater than 50% in coordination of care (as documented) at patient's floor/unit and/or counseling patient: Coding Level of Care Code 95356 Subseq Hosp Care Lvl 3 Diagnoses Pneumonia due to COVID-19 virus U07.1; J12.82 Acute hypoxemic respiratory failure due to COVID-19 U07.1; J96.01 Morbid obesity with BMI of 50.0-59.9, adult E66.01; Z68.43 D-dimer, elevated R79.89
[2021-09-26 17:12] LABS: Partial Thromboplastin Ratio 1.6
[2021-09-26] MEDS: MoRPHine SULFATE 2 MG/ML CARP IV PRN (23:13)
[2021-09-26] MEDS: ACETAMINOPHEN 500 MG TAB PO PRN (23:13)
[2021-09-27 00:04] LABS: Partial Thromboplastin Ratio 1.9
[2021-09-27 00:12] LABS: Partial Thromboplastin Time 53.3 Seconds (21.0-31.0)
[2021-09-27] MEDS: HEPARIN SODIUM/DEXTROSE 25,000 UNITS/500 ML BAG IV SCH ×2 (05:33→16:07)
[2021-09-27] MEDS: LEVOTHYROXINE SODIUM 137 MCG TABLET PO SCH (05:41)
[2021-09-27] MEDS: ACETAMINOPHEN 500 MG TAB PO PRN ×2 (05:50→20:33)
[2021-09-27] MEDS: MoRPHine SULFATE 2 MG/ML CARP IV PRN ×2 (05:50→20:33)
--- NOTE | 2021-09-27 06:38 | Ultrasound Report ---
US venous doppler LE BI CLINICAL HISTORY: Bilateral leg swelling. COMPARISON: None available at the time of this dictation. TECHNIQUE: Bilateral lower extremity real-time compression venous ultrasound with Color Doppler imagi ng. Utilizing real-time ultrasonic imaging multiple real time high-resolution ultrasonic images with comp ression and noncompression maneuvers of the deep venous system in addition to color doppler imaging w ere performed from the common femoral vein through the proximal calf veins. FINDINGS: Currently there is normal compressibility of the deep venous system from the common femoral vein thro ugh the proximal calf veins. No current evidence of acute thrombosis is identified. Impression: No evidence of deep venous thrombus. ACT 112: Negative or not required by law. Electronically signed by: Antony Ngo M.D. 09/27/2021 6:36 AM
[2021-09-27] MEDS: BENZONATATE 100 MG CAPSULE PO SCH ×3 (08:18→20:32)
[2021-09-27 09:06] LABS: Hemoglobin 17.5 g/dL (14.0-18.0); Mean Corpuscular Hemoglobin 34.3 pg (25-34); Mean Corpuscular Hgb Conc 36.5 g/dL (32-36); Mean Corpuscular Volume 94.1 fL (80-100); Platelet Count 486 K/uL (130-400); RDW Coefficient of Variation 12.7 % (11.5-14.5); RDW Standard Deviation 43.8 fL (36.4-46.3); White Blood Count 25.02 K/uL (4.8-10.8)
[2021-09-27 09:29] LABS: Albumin Globulin Ratio 1.1 (0.9-2); Albumin Level 3.7 gm/dl (3.4-5.0); BUN Creatinine Ratio 27.4 (10-20); Bilirubin,Total 1.2 mg/dl (0.2-1.0); Calcium 8.8 mg/dl (8.5-10.1); Creatinine Clr Calc Pharmacy 167.9 ml/min; Est GFR (African American) 107.9 ml/min; Est GFR (Non-African American) 93.1 ml/min; Globulin 3.4 gm/dl (2.5-4.0); Total Protein 7.1 gm/dl (6.0-8.3)
[2021-09-27 09:32] LABS: Partial Thromboplastin Ratio 2.3
[2021-09-27 09:35] LABS: Partial Thromboplastin Time 62.8 Seconds (21.0-31.0)
[2021-09-27] MEDS: dexAMETHasone 20 MG in DEXTROSE 5% 25 ML IV SCH (09:39)
--- NOTE | 2021-09-27 10:10 | Hospitalist Progress Note ---
Date of Service September 27, 2021 Assessment & Plan (1) Acute respiratory failure with hypoxia: (2) Pneumonia due to COVID-19 virus: (3) Morbid obesity with BMI of 50.0-59.9, adult: (4) Hypothyroidism: (5) Elevated transaminase level: Plan: 30 yr old M who has a significant PMH of morbid obesity and hypothyroidism who presents to ED 09/19 due to worsening cough, sob and low pulse ox readings x 1 day. He is being managed for the following: #. Acute hypoxic respiratory failure #. Pneumonia due to COVID-19 Patient reports having signs and symptoms since 09 September Admitting imagings: CXR: Multifocal patchy bilateral airspace opacities. This likely represents a viral pneumonia. CTA Chest: Mild cardiomegaly without pulmonary emboli. 2. Extensive bilateral groundglass and alveolar opacities are compatible with multifocal pneumonia, likely viral etiology. 3. Mild likely reactive mediastinal lymphadenopathy. 4. Hepatosplenomegaly with hepatic steatosis. BNP negative, admitting pro-Mars negative. Sx started 09/09, tested positive in [facility] 09/15 09/19: Patient given detailed information on the prognosis and the nature of Covid course. Explained the possibility of worst case scenario and he would like to go with everything possible including intubation. Nonvaccinated status Continue with dexamethasone at high dose, Completed remdesivir 09/22 lasix stopped, Pulm on Case pulmonary toilet with incentive spirometry, albuterol supportive care encourage self proning Patient requiring high oxygen, wean down oxygen as tolerated. Hepatic steatosis Elevated transaminase level Follow LFT level, LFT normalized. Possibly in setting of fatty liver disease due to morbid obesity on the background of Covid. Encouraged weight loss, diet and lifestyle modifications Hypothyroidism Continue levothyroxine DVT prophylaxis: Lovenox twice daily Labs reviewed Dispo: PCU on 55L 90% FiO2, Pulm on case, rec [place] for Ecmo, but not a candidate, O2 req creeping up FULL CODE PCP: Alexey CASAS-No Headache, No Visual Changes, No Nausea, No Vomiting, No Fever, No Chills, No Neck Pain or Stiffness, No Chest Pain, No Palpitations, +SOB, +DAY, +Cough, No Sputum, No Wheezing, No Abdominal Pain, No Diarrhea, No Hematemesis, No Hemoptysis, No Unexpected Weight Loss, No Flank pain, No Melena, No Hematochezia, No Frequency, No Urgency, No Burning, No Hematuria, No Rashes, No Diaphoresis. Appetite is Normal, Neede O2 bumped up last PM Physical Exam Gen-AAO x 3, NAD, Afebrile, Obese Head-NCAT, EOMI, PERRLA, Anicteric Sclera, No Posterior Pharyngeal Erythema Neck-Supple, No JVD, No Thyromegaly, No Masses, No LAD, No Bruits Lungs-Clear to Auscultation Bilaterally, Diminished, No Rales, No Rhonchi, No Wheezing, No Crepitus Chest-No S4, +S1, +S2, No S3, No Murmurs, No Rubs, No Gallops, No Ectopy Abdomen-Soft, Bowel Sounds Present, Non Tender, Non Distended, No Hepatomegaly, No Splenomegaly, No Palpable Masses, No Rebound, No Rigidity, No Guarding Musculoskeletal-Full Range of Motion Bilaterally, No CVAT Extremities-No Cyanosis, No Clubbing, No Edema Nuero-Cranial Nerves II-XII grossly intact, Motor WNL, DTRs WNL, Strength WNL, Non Focal Psych-Normal Mood Admission and Anticipated Discharge Date Admission Date: September 18, 2021 Subjective Patient seen, no new issues, Still on HFNC 50L/90% Results & Data Results & Data ([facility]) Vital Signs (Past 12 Hours) Vital Signs Temp Pulse Pulse Resp BP Pulse Ox 09/27/21 08:11 36.5 C 76 22 135/85 96 09/27/21 07:35 78 18 92 09/27/21 06:48 91/51 L 09/27/21 04:15 36.9 C 63 19 113/63 96 09/27/21 02:40 51 L 21 94 09/27/21 00:00 68 09/26/21 23:23 36.5 C 70 18 130/90 95 09/26/21 23:20 77 28 H 95
[2021-09-27] MEDS: PANTOprazole 40 MG TAB PO SCH (13:32)
[2021-09-28] MEDS: HEPARIN SODIUM/DEXTROSE 25,000 UNITS/500 ML BAG IV SCH ×6 (01:39→22:10)
[2021-09-28] MEDS: LEVOTHYROXINE SODIUM 137 MCG TABLET PO SCH (05:36)
[2021-09-28 06:40] LABS: Hematocrit (blood only) 46.1 % (42-52); Hemoglobin 16.3 g/dL (14.0-18.0); Mean Corpuscular Hemoglobin 33.4 pg (25-34); Mean Corpuscular Hgb Conc 35.4 g/dL (32-36); Mean Corpuscular Volume 94.5 fL (80-100); Platelet Count 371 K/uL (130-400); RDW Coefficient of Variation 12.6 % (11.5-14.5); RDW Standard Deviation 43.2 fL (36.4-46.3); Red Blood Count 4.88 M/uL (4.7-6.1); White Blood Count 19.24 K/uL (4.8-10.8)
[2021-09-28 07:12] LABS: Alanine Aminotransferase 50 U/L (7-52); Albumin Globulin Ratio 1.1 (0.9-2); Albumin Level 3.4 gm/dl (3.4-5.0); Alkaline Phosphatase 39 U/L (34-104); Anion Gap 7 (3-11); Aspartate Aminotransferase 19 U/L (13-39); BUN Creatinine Ratio 31.7 (10-20); Bilirubin,Total 1.1 mg/dl (0.2-1.0); Blood Urea Nitrogen 26 mg/dl (6-23); C Reactive Protein < 0.50 mg/dl (0-0.5); Calcium 8.4 mg/dl (8.5-10.1); Carbon Dioxide 25 mmol/L (21-32); Chloride 99 mmol/L (98-107); Creatinine Clr Calc Pharmacy 218.3 ml/min; Est GFR (African American) 136.6 ml/min; Est GFR (Non-African American) 117.8 ml/min; Glucose 145 mg/dl (70-99(Fasting)); Potassium 4.3 mmol/L (3.5-5.1); Sodium 131 mmol/L (136-145); Total Protein 6.4 gm/dl (6.0-8.3)
[2021-09-28 07:47] LABS: Partial Thromboplastin Ratio 2.8
[2021-09-28 07:51] LABS: Partial Thromboplastin Time 75.7 Seconds (21.0-31.0)
[2021-09-28] MEDS: INSULIN ASPART PER UNIT SC SCH ×4 (08:10→20:17)
[2021-09-28] MEDS: BENZONATATE 100 MG CAPSULE PO SCH ×3 (08:26→20:41)
[2021-09-28] MEDS: dexAMETHasone 20 MG in DEXTROSE 5% 25 ML IV SCH (08:26)
[2021-09-28] MEDS: PANTOprazole 40 MG TAB PO SCH (08:26)
--- NOTE | 2021-09-28 11:12 | Hospitalist Progress Note ---
Date of Service September 28, 2021 Assessment & Plan (1) Acute respiratory failure with hypoxia: (2) Pneumonia due to COVID-19 virus: (3) Morbid obesity with BMI of 50.0-59.9, adult: (4) Hypothyroidism: (5) Elevated transaminase level: Plan: 30 yr old M who has a significant PMH of morbid obesity and hypothyroidism who presents to ED 09/19 due to worsening cough, sob and low pulse ox readings x 1 day. He is being managed for the following: #. Acute hypoxic respiratory failure #. Pneumonia due to COVID-19 Patient reports having signs and symptoms since 09 September Admitting imagings: CXR: Multifocal patchy bilateral airspace opacities. This likely represents a viral pneumonia. CTA Chest: Mild cardiomegaly without pulmonary emboli. 2. Extensive bilateral groundglass and alveolar opacities are compatible with multifocal pneumonia, likely viral etiology. 3. Mild likely reactive mediastinal lymphadenopathy. 4. Hepatosplenomegaly with hepatic steatosis. BNP negative, admitting pro-Mars negative. Sx started 09/09, tested positive in [facility] 09/15 09/19: Patient given detailed information on the prognosis and the nature of Covid course. Explained the possibility of worst case scenario and he would like to go with everything possible including intubation. Nonvaccinated status Continue with dexamethasone at high dose, Completed remdesivir 09/22 lasix stopped, Pulm on Case pulmonary toilet with incentive spirometry, albuterol supportive care encourage self proning Patient requiring high oxygen, wean down oxygen as tolerated. Hepatic steatosis Elevated transaminase level Follow LFT level, LFT normalized. Possibly in setting of fatty liver disease due to morbid obesity on the background of Covid. Encouraged weight loss, diet and lifestyle modifications Hypothyroidism Continue levothyroxine DVT prophylaxis: Lovenox twice daily Labs reviewed Dispo: PCU on 50L 80% FiO2, Pulm on case, Improving FULL CODE PCP: Alexey CASAS-No Headache, No Visual Changes, No Nausea, No Vomiting, No Fever, No Chills, No Neck Pain or Stiffness, No Chest Pain, No Palpitations, +SOB, +DAY, +Cough, No Sputum, No Wheezing, No Abdominal Pain, No Diarrhea, No Hematemesis, No Hemoptysis, No Unexpected Weight Loss, No Flank pain, No Melena, No Hematochezi a, No Frequency, No Urgency, No Burning, No Hematuria, No Rashes, No Diaphoresis. Appetite is Normal, Neede O2 bumped up last PM Physical Exam Gen-AAO x 3, NAD, Afebrile, Obese Head-NCAT, EOMI, PERRLA, Anicteric Sclera, No Posterior Pharyngeal Erythema Neck-Supple, No JVD, No Thyromegaly, No Masses, No LAD, No Bruits Lungs-Clear to Auscultation Bilaterally, Diminished, No Rales, No Rhonchi, No Wheezing, No Crepitus Chest-No S4, +S1, +S2, No S3, No Murmurs, No Rubs, No Gallops, No Ectopy Abdomen-Soft, Bowel Sounds Present, Non Tender, Non Distended, No Hepatomegaly, No Splenomegaly, No Palpable Masses, No Rebound, No Rigidity, No Guarding Musculoskeletal-Full Range of Motion Bilaterally, No CVAT Extremities-No Cyanosis, No Clubbing, No Edema Nuero-Cranial Nerves II-XII grossly intact, Motor WNL, DTRs WNL, Strength WNL, Non Focal Psych-Normal Mood Admission and Anticipated Discharge Date Admission Date: September 18, 2021 Subjective Patient seen, no new issues, Still on HFNC now 50L/80% Results & Data Results & Data ([facility]) Vital Signs (Past 12 Hours) Vital Signs Temp Pulse Pulse Resp BP Pulse Ox 09/28/21 07:51 36.7 C 71 24 141/84 H 90 09/28/21 06:15 57 L 09/28/21 04:13 36.7 C 55 L 17 130/66 96 09/28/21 02:20 46 L 23 94 09/27/21 23:36 48 L
--- NOTE | 2021-09-28 13:07 | Pulmonology Progress Note ---
Date of Service September 28, 2021 Assessment & Plan (1) Pneumonia due to COVID-19 virus: (2) Acute hypoxemic respiratory failure due to COVID-19: (3) Morbid obesity with BMI of 50.0-59.9, adult: (4) D-dimer, elevated: Plan: 30-year-old male with a history of morbid obesity and hypothyroidism now with COVID-19 viral pneumonia. Day #4 of high-dose Decadron (20 mg). We will continue for 5 days total and then decrease to 10 mg Decadron for 5 days. D-dimer 3 was significantly elevated to 1900. Heparin infusion initiated 09/25. Ultrasound of the lower extremities did not suggest evidence of DVT. Unclear if the D-dimer is related to clot burden or an inflammatory response due to COVID-19. We will continue with empiric heparin drip. Chest CTA from 09/18 again reviewed with bilateral groundglass opacities, but no pulmonary embolism seen. Continue proning and pulmonary toileting as much as possible. Continue the use of alternating high flow nasal cannula and CPAP therapy. Chest x-ray from 09/25 with multifocal pneumonia seen similar to prior exam. Leukocytosis remains, but improved from yesterday which is likely secondary to demargination given high-dose steroid use. Currently WBC count 19,240. Pro-Mars checked 09/25 was less than 0.05 ng/mL. Blood cultures from 09/27 pending. No indication for antibiotics currently Fortunately, his oxygen requirements have improved mildly over the last 24 to 48 hours. We will continue to follow the patient. Discussed with bedside nurse. Admission and Anticipated Discharge Date Admission Date: September 18, 2021 Subjective Patient seen and examined. He has been trying as much as possible and using his incentive spirometer 5 times per hour. He notes some improvement in his b reathing at rest. He has also been able to ambulate around the room, but becomes very dyspneic. Currently required high flow oxygen. I was able to wean him down to 70% and a flow rate of 50 L. He remains on a heparin infusion. Review of Systems Review of Systems: All systems reviewed & are unremarkable except as noted in HPI & below Physical Exam Physical Exam: Constitutional: Patient appears to be of their stated age. Patient is in no apparent distress. More lethargic appearing today. Eyes: Pupils are equal round and reactive to light. Conjunctivae are normal. Anicteric sclera. Ears nose, mouth and throat: No obvious facial deformities. Neck: Trachea is midline. Visual inspection is normal. Respiratory: Diminished at the bases bilaterally. Cardiovascular: Regular rate and rhythm. No murmurs. No edema. Gastrointestinal: Normal bowel sounds, soft, nontender and nondistended. No hepatosplenomegaly noted. Musculoskeletal: Patient is able to move all extremities. Strength is 5 out of 5 in the upper and lower extremities. Skin: No rashes, warm dry and intact. Neurologic: No obvious focal neurological deficits seen. Psychiatric: Alert and oriented x3 with a euthymic affect. Results & Data Results & Data ([facility]) Vital Signs (Past 12 Hours) Vital Signs Temp Pulse Pulse Resp BP Pulse Ox 09/28/21 11:45 36.6 C 72 22 142/62 H 88 L 09/28/21 07:51 36.7 C 71 24 141/84 H 90 09/28/21 06:15 57 L 09/28/21 04:13 36.7 C 55 L 17 130/66 96 09/28/21 02:20 46 L 23 94 PG Care Time/CCT Total # of Minutes Spent Total Time Spent with Patient: Total time spent is greater than 50% in coordination of care (as documented) at patient's floor/unit and/or counseling patient: Coding Level of Care Code 39285 Subseq Hosp Care Lvl 2 Diagnoses Pneumonia due to COVID-19 virus U07.1; J12.82 Acute hypoxemic respiratory failure due to COVID-19 U07.1; J96.01 Morbid obesity with BMI of 50.0-59.9, adult E66.01; Z68.43 D-dimer, elevated R79.89
[2021-09-28 14:30] LABS: Partial Thromboplastin Ratio 2.6
[2021-09-28 14:31] LABS: Partial Thromboplastin Time 72.6 Seconds (21.0-31.0)
[2021-09-28] MEDS: MoRPHine SULFATE 2 MG/ML CARP IV PRN (20:39)
[2021-09-28] MEDS: ACETAMINOPHEN 500 MG TAB PO PRN (20:39)
[2021-09-28 21:50] LABS: Partial Thromboplastin Ratio 2.2
[2021-09-28 21:57] LABS: Partial Thromboplastin Time 61.1 Seconds (21.0-31.0)
[2021-09-29] MEDS: LEVOTHYROXINE SODIUM 137 MCG TABLET PO SCH (05:36)
[2021-09-29 07:18] LABS: Mean Corpuscular Hemoglobin 34.6 pg (25-34); Mean Corpuscular Hgb Conc 36.4 g/dL (32-36); Mean Platelet Volume 10.2 fL (7.4-10.4); Platelet Count 340 K/uL (130-400); RDW Coefficient of Variation 12.8 % (11.5-14.5); RDW Standard Deviation 44.1 fL (36.4-46.3); Red Blood Count 4.63 M/uL (4.7-6.1)
[2021-09-29 07:22] LABS: Estimated Average Glucose 131 mg/dl; Hemoglobin A1C 6.2 % (4.5-5.6)
[2021-09-29 07:27] LABS: Albumin Globulin Ratio 1.1 (0.9-2); Albumin Level 3.4 gm/dl (3.4-5.0); BUN Creatinine Ratio 22.3 (10-20); Bilirubin,Total 1.1 mg/dl (0.2-1.0); Calcium 8.4 mg/dl (8.5-10.1); Creatinine Clr Calc Pharmacy 175.6 ml/min; Est GFR (African American) 111.7 ml/min; Est GFR (Non-African American) 96.3 ml/min; Globulin 3.1 gm/dl (2.5-4.0); Potassium 4.5 mmol/L (3.5-5.1); Total Protein 6.5 gm/dl (6.0-8.3)
[2021-09-29 07:36] LABS: Partial Thromboplastin Ratio 2.7
[2021-09-29 07:42] LABS: Partial Thromboplastin Time 73.3 Seconds (21.0-31.0)
--- NOTE | 2021-09-29 07:46 | Hospitalist Progress Note ---
Date of Service September 29, 2021 Assessment & Plan (1) Acute respiratory failure with hypoxia: (2) Pneumonia due to COVID-19 virus: (3) Morbid obesity with BMI of 50.0-59.9, adult: (4) Hypothyroidism: (5) Elevated transaminase level: Plan: 30 yr old M who has a significant PMH of morbid obesity and hypothyroidism who presents to ED 09/19 due to worsening cough, sob and low pulse ox readings x 1 day. He is being managed for the following: #. Acute hypoxic respiratory failure #. Pneumonia due to COVID-19 Patient reports having signs and symptoms since 09 September Admitting imagings: CXR: Multifocal patchy bilateral airspace opacities. This likely represents a viral pneumonia. CTA Chest: Mild cardiomegaly without pulmonary emboli. 2. Extensive bilateral groundglass and alveolar opacities are compatible with multifocal pneumonia, likely viral etiology. 3. Mild likely reactive mediastinal lymphadenopathy. 4. Hepatosplenomegaly with hepatic steatosis. BNP negative, admitting pro-Mars negative. Sx started 09/09, tested positive in [facility] 09/15 09/19: Patient given detailed information on the prognosis and the nature of Covid course. Explained the possibility of worst case scenario and he would like to go with everything possible including intubation. Nonvaccinated status Continue with dexamethasone at high dose, Completed remdesivir 09/22 lasix stopped, Pulm on Case pulmonary toilet with incentive spirometry, albuterol supportive care encourage self proning Patient requiring high oxygen, wean down oxygen as tolerated. Hepatic steatosis Elevated transaminase level Follow LFT level, LFT normalized. Possibly in setting of fatty liver disease due to morbid obesity on the background of Covid. Encouraged weight loss, diet and lifestyle modifications Hypothyroidism Continue levothyroxine DVT prophylaxis: Lovenox twice daily Labs reviewed Dispo: PCU on 40L 65% FiO2, Pulm on case, Improving FULL CODE PCP: Alexey CASAS-No Headache, No Visual Changes, No Nausea, No Vomiting, No Fever, No Chills, No Neck Pain or Stiffness, No Chest Pain, No Palpitations, +SOB, +DAY, +Cough, No Sputum, No Wheezing, No Abdominal Pain, No Diarrhea, No Hematemesis, No Hemoptysis, No Unexpected Weight Loss, No Flank pain, No Melena, No Hematochezi a, No Frequency, No Urgency, No Burning, No Hematuria, No Rashes, No Diaphoresis. Appetite is Normal Physical Exam Gen-AAO x 3, NAD, Afebrile, Obese Head-NCAT, EOMI, PERRLA, Anicteric Sclera, No Posterior Pharyngeal Erythema Neck-Supple, No JVD, No Thyromegaly, No Masses, No LAD, No Bruits Lungs-Clear to Auscultation Bilaterally, Diminished, No Rales, No Rhonchi, No Wheezing, No Crepitus Chest-No S4, +S1, +S2, No S3, No Murmurs, No Rubs, No Gallops, No Ectopy Abdomen-Soft, Bowel Sounds Present, Non Tender, Non Distended, No Hepatomegaly, No Splenomegaly, No Palpable Masses, No Rebound, No Rigidity, No Guarding Musculoskeletal-Full Range of Motion Bilaterally, No CVAT Extremities-No Cyanosis, No Clubbing, No Edema Nuero-Cranial Nerves II-XII grossly intact, Motor WNL, DTRs WNL, Strength WNL, Non Focal Psych-Normal Mood Admission and Anticipated Discharge Date Admission Date: September 18, 2021 Subjective Patient seen down to 65% and a flow rate of 40 L. He remains on a heparin infusion. Feels like he's improving. Results & Data Results & Data ([facility]) Vital Signs (Past 12 Hours) Vital Signs Temp Pulse Pulse Resp BP Pulse Ox 09/29/21 07:18 81 22 88 L 09/29/21 03:28 36.4 C L 71 20 110/69 94 09/29/21 02:15 48 L 21 94 09/29/21 00:00 54 L 09/28/21 22:41 36.0 C L 58 L 21 131/73 97 09/28/21 22:05 57 L 21 94 09/28/21 20:15 66 22 93
[2021-09-29] MEDS: INSULIN ASPART PER UNIT SC SCH ×4 (08:25→21:21)
[2021-09-29] MEDS: PANTOprazole 40 MG TAB PO SCH (08:31)
[2021-09-29] MEDS: BENZONATATE 100 MG CAPSULE PO SCH ×3 (08:31→20:52)
[2021-09-29] MEDS: dexAMETHasone 20 MG in DEXTROSE 5% 25 ML IV SCH (09:26)
[2021-09-29] MEDS: HEPARIN SODIUM/DEXTROSE 25,000 UNITS/500 ML BAG IV SCH ×2 (09:27→20:18)
--- NOTE | 2021-09-29 11:23 | Pulmonology Progress Note ---
Date of Service September 29, 2021 Assessment & Plan (1) Pneumonia due to COVID-19 virus: (2) Acute hypoxemic respiratory failure due to COVID-19: (3) Morbid obesity with BMI of 50.0-59.9, adult: (4) D-dimer, elevated: Plan: Impression: 30-year-old male with a history of morbid obesity and hypothyroidism now with COVID-19 viral pneumonia. Recommendations: COVID PNA: Day #5 of high-dose Decadron (20 mg), decrease to 10 mg Decadron for 5 days starting tomorrow - CRP now undetectable, may be able to taper faster. Continue proning and pulmonary toileting as much as possible. Continue the use of alternating high flow nasal cannula and CPAP therapy. Chest x-ray from 09/25 with multifocal pneumonia seen similar to prior exam. Recheck BNP and start diuresis. Possible PE: treatment initiated based on increased D dimer - CTA negative from 09/18 and duplex US negative 09/26. Ok to stop heparin infusion, DVT proph initiated. Possible PNA: Leukocytosis remains, but improved from yesterday which may be related to demargination given high-dose steroid use. Pro-Mars checked 09/25 was less than 0.05 ng/mL. Blood cultures from 09/27 no growth to date. No indication for antibiotics currently Hypoxemic resp failure: secondary to above. Continue attempts to wean oxygen as tolerated. Discussed with patient at bedside and questions answered. Will continue to follow. Admission and Anticipated Discharge Date Admission Date: September 18, 2021 Subjective Patient seen and examined. EMR reviewed. Discussed with off going Pulmonary provider. Pt feels slightly better. No cough or sputum production. No chest pain. Compliant with IS and flutter and proning as much as possible. No fevers. Tolerating diet. Down to 60% and 35 LPM. Review of Systems Review of Systems: All systems reviewed & are unremarkable except as noted in Subjective Physical Exam Constitutional: WD/WN, vitals as above + morbidly obese Neck: trachea midline, no thyromegaly Respiratory: normal respiratory effort; no respiratory distress, no labored breathing and not tachypneic Auscultation: + rales; no wheezes Cardiovascular: RRR, no murmur, no edema Gastrointestinal (Abdomen): normal bowel sounds, soft, nontender, no hepatosplenomegaly Musculoskeletal: Extremities: extremities normal to inspection Skin: no rashes, warm and dry Neurologic: Nonfocal exam Lymphatic: no cervical lymphadenopathy Results & Data Results & Data ([facility]) Vital Signs (Past 12 Hours) Vital Signs Temp Pulse Pulse Resp BP Pulse Ox 09/29/21 09:53 93 H 65 20 95 09/29/21 09:44 46 L 09/29/21 07:50 36.6 C 68 22 167/79 H 87 L 09/29/21 07:18 81 22 88 L 09/29/21 03:28 36.4 C L 71 20 110/69 94 09/29/21 02:15 48 L 21 94 09/29/21 00:00 54 L Critical Care Results & Data Vital Signs (Past 12 Hours) Vital Signs Temp Pulse Pulse Resp BP Pulse Ox 09/29/21 09:53 93 H 65 20 95 09/29/21 09:44 46 L 09/29/21 07:50 36.6 C 68 22 167/79 H 87 L 09/29/21 07:18 81 22 88 L 09/29/21 03:28 36.4 C L 71 20 110/69 94 09/29/21 02:15 48 L 21 94 09/29/21 00:00 54 L Lab & Micro Results (Past 24 Hours) RBC 4.63 M/uL (4.7-6.1) L 09/29/21 WBC 18.20 K/uL (4.8-10.8) H 09/29/21 Hgb 16.0 g/dL (14.0-18.0) 09/29/21 Hct 44.0 % (42-52) 09/29/21 MCV 95.0 fL (80-100) 09/29/21 MCH 34.6 pg (25-34) H 09/29/21 MCHC 36.4 g/dL (32-36) H 09/29/21 RDW Standard Deviation 44.1 fL (36.4-46.3) 09/29/21 RDW Coefficient of Variation 12.8 % (11.5-14.5) 09/29/21 Plt Count 340 K/uL (130-400) 09/29/21 MPV 10.2 fL (7.4-10.4) 09/29/21 Na 136 mmol/L (136-145) 09/29/21 K 4.5 mmol/L (3.5-5.1) 09/29/21 Cl 102 mmol/L (98-107) 09/29/21 CO2 28 mmol/L (21-32) 09/29/21 Anion Gap 6 (3-11) 09/29/21 BUN 23 mg/dl (6-23) 09/29/21 Creatinine 1.03 mg/dl (0.6-1.4) 09/29/21 Estimated GFR ( Amer) 111.7 ml/min 09/29/21 Estimated GFR (Non-Af Amer) 96.3 ml/min 09/29/21 BUN/Creatinine Ratio 22.3 (10-20) H 09/29/21 Glu 138 mg/dl (70-99(Fasting)) H 09/29/21 Ca 8.4 mg/dl (8.5-10.1) L 09/29/21 Total Bilirubin 1.1 mg/dl (0.2-1.0) H 09/29/21 AST 19 U/L (13-39) 09/29/21 ALT 63 U/L (7-52) H 09/29/21 Alkaline Phosphatase 39 U/L (34-104) 09/29/21 TP 6.5 gm/dl (6.0-8.3) 09/29/21 Albumin 3.4 gm/dl (3.4-5.0) 09/29/21 Globulin 3.1 gm/dl (2.5-4.0) 09/29/21 Albumin/Globulin Ratio 1.1 (0.9-2) 09/29/21 Calcium Level 8.4 mg/dl (8.5-10.1) L 09/29/21 06:47 09/29/21 Microbiology 09/27/21 14:14 Aerobic Blood Culture - Preliminary Blood No growth in Aerobic bottle after 24 hours. Anaerobic Blood Culture - Preliminary No growth in Anaerobic bottle after 24 hours. 09/27/21 14:18 Aerobic Blood Culture - Preliminary Blood No growth in Aerobic bottle after 24 hours. Anaerobic Blood Culture - Preliminary No growth in Anaerobic bottle after 24 hours. I & O Totals 24 Hours 09/28/21 09/29/21 09/30/21 06:59 06:59 06:59 Intake Total 2217.134 / 2217.134 1831.716 / 1831.716 530.0 / 530.0 Output Total 1999 3326 / 3326 Balance 217.134 / 217.134 -1494.284 / -1494.284 530.0 / 530.0 Cumulative 09/18/21 11:15 thru 09/29/21 10:10 Intake Total 30901.984 Output Total 32116 Balance -8479.016 RT Ventilator Mngmt (Last Documented) Ventilator Ordered Settings Respiratory Rate 20 09/29/21 09:53 Fraction of Inspired Oxygen 65 09/29/21 09:53 Ventilator - PT Measurements Respiratory Rate 20 PG Care Time/CCT Total # of Minutes Spent Total Time Spent with Patient: Total time spent is greater than 50% in coordination of care (as documented) at patient's floor/unit and/or counseling patient: Coding Level of Care Code 68437 Subseq Hosp Care Lvl 3 Diagnoses Pneumonia due to COVID-19 virus U07.1; J12.82 Acute hypoxemic respiratory failure due to COVID-19 U07.1; J96.01 Morbid obesity with BMI of 50.0-59.9, adult E66.01; Z68.43 D-dimer, elevated R79.89
[2021-09-29] MEDS: FUROSEMIDE INJ 20 MG/2 ML VIAL IV SCH (12:24)
[2021-09-29] MEDS: HEPARIN SOD 5,000 UNIT/0.5 ML VIAL SQ SCH ×2 (13:22→20:52)
[2021-09-30] MEDS: HEPARIN SOD 5,000 UNIT/0.5 ML VIAL SQ SCH ×3 (06:12→20:50)
[2021-09-30] MEDS: LEVOTHYROXINE SODIUM 137 MCG TABLET PO SCH (06:12)
[2021-09-30] MEDS: dexAMETHasone 20 MG in DEXTROSE 5% 25 ML IV SCH (07:59)
[2021-09-30] MEDS: BENZONATATE 100 MG CAPSULE PO SCH ×3 (08:00→20:49)
[2021-09-30] MEDS: FUROSEMIDE INJ 20 MG/2 ML VIAL IV SCH (08:00)
[2021-09-30] MEDS: PANTOprazole 40 MG TAB PO SCH (08:01)
[2021-09-30 08:28] LABS: Mean Corpuscular Hemoglobin 33.8 pg (25-34); Mean Corpuscular Hgb Conc 35.4 g/dL (32-36); Mean Corpuscular Volume 95.4 fL (80-100); Mean Platelet Volume 10.4 fL (7.4-10.4); Platelet Count 342 K/uL (130-400); RDW Coefficient of Variation 12.8 % (11.5-14.5); Red Blood Count 5.03 M/uL (4.7-6.1); White Blood Count 17.25 K/uL (4.8-10.8)
[2021-09-30] MEDS: INSULIN ASPART PER UNIT SC SCH ×4 (08:31→20:50)
[2021-09-30 08:47] LABS: Albumin Globulin Ratio 1.2 (0.9-2); Albumin Level 3.7 gm/dl (3.4-5.0); BUN Creatinine Ratio 25.7 (10-20); Bilirubin,Total 1.2 mg/dl (0.2-1.0); Creatinine Clr Calc Pharmacy 162.8 ml/min; Est GFR (African American) 104.3 ml/min; Globulin 3.2 gm/dl (2.5-4.0); Total Protein 6.9 gm/dl (6.0-8.3)
--- NOTE | 2021-09-30 10:35 | Pulmonology Progress Note ---
Date of Service September 30, 2021 Assessment & Plan (1) Pneumonia due to COVID-19 virus: (2) Acute hypoxemic respiratory failure due to COVID-19: (3) Morbid obesity with BMI of 50.0-59.9, adult: (4) D-dimer, elevated: Plan: Impression: 30-year-old male with a history of morbid obesity and hypothyroidism now with COVID-19 viral pneumonia. Recommendations: COVID PNA: Day #6 of high-dose Decadron -given that his CRP is undetectable and is showing clinical improvement, will taper to off over the next 5 days, decrease to 4 mg a day today. Continue proning and pulmonary toileting as much as possible. Continue the use of alternating high flow nasal cannula and CPAP therapy. Chest x-ray from 09/25 with multifocal pneumonia seen similar to prior exam. Continue diuresis. Systemic anticoagulation was initiated based on increased D dimer - CTA negative from 09/18 and duplex US negative 09/26. Off heparin and currently on DVT prophylaxis. Possible PNA: Leukocytosis remains, but improved from yesterday which may be related to demargination given high-dose steroid use. Pro-Mars checked 09/25 was less than 0.05 ng/mL. Blood cultures from 09/27 no growth to date. No indication for antibiotics currently Hypoxemic resp failure: secondary to above. Continue attempts to wean oxygen as tolerated. Recommend that patient sleep-wake cycle strain be maintained is much as possible. Would try and avoid interruptions to the patient's regular sleep jayesh edule. Would recommend a follow-up chest x-ray in 6 to 8 weeks and consideration for outpatient pulmonary function tests in 3 months or so depending on clinical course. Discussed with patient at bedside and questions answered. Will continue to follow. Admission and Anticipated Discharge Date Admission Date: September 18, 2021 Subjective Patient seen and examined. EMR reviewed. The patient states that he feels like he is making slow progress. He states he is unable to sleep. The bed is quite uncomfortable for him. He is also being interrupted by nursing and with monitoring devices and alarms. He denies any chest pain or palpitations. He is trying to be up and mobile as much as he can. His appetite is returning slightly. Review of Systems Review of Systems: All systems reviewed & are unremarkable except as noted in Subjective Physical Exam Constitutional: WD/WN, vitals as above + morbidly obese Neck: trachea midline, no thyromegaly Respiratory: normal respiratory effort; no respiratory distress, no labored breathing and not tachypneic Auscultation: + rales; no wheezes Cardiovascular: RRR, no murmur, no edema Gastrointestinal (Abdomen): normal bowel sounds, soft, nontender, no hepatosplenomegaly Musculoskeletal: Extremities: extremities normal to inspection Skin: no rashes, warm and dry Lymphatic: no cervical lymphadenopathy Results & Data Results & Data ([facility]) Vital Signs (Past 12 Hours) Vital Signs Temp Pulse Pulse Resp BP BP Pulse Ox 09/30/21 09:04 36.6 C 75 20 131/85 90 09/30/21 03:31 36.6 C 62 18 107/65 94 09/30/21 03:15 90 09/30/21 00:38 43 L 09/29/21 23:43 36.6 C 56 L 18 95/56 L 94 Laboratory Results 09/30/21 07:54 09/30/21 07:54 Diagnostic Findings No new imaging PG Care Time/CCT Total # of Minutes Spent Total Time Spent with Patient: Total time spent is greater than 50% in coordination of care (as documented) at patient's floor/unit and/or counseling patient: Coding Level of Care Code 51339 Subseq Hosp Care Lvl 2 Diagnoses Pneumonia due to COVID-19 virus U07.1; J12.82 Acute hypoxemic respiratory failure due to COVID-19 U07.1; J96.01 Morbid obesity with BMI of 50.0-59.9, adult E66.01; Z68.43 D-dimer, elevated R79.89
--- NOTE | 2021-09-30 11:41 | Hospitalist Progress Note ---
Date of Service September 30, 2021 Assessment & Plan (1) Acute respiratory failure with hypoxia: (2) Pneumonia due to COVID-19 virus: (3) Morbid obesity with BMI of 50.0-59.9, adult: (4) Hypothyroidism: (5) Elevated transaminase level: Plan: 30 yr old M who has a significant PMH of morbid obesity and hypothyroidism who presents to ED 09/19 due to worsening cough, sob and low pulse ox readings x 1 day. He is being managed for the following: #. Acute hypoxic respiratory failure #. Pneumonia due to COVID-19 Patient reports having signs and symptoms since 09 September Admitting imagings: CXR: Multifocal patchy bilateral airspace opacities. This likely represents a viral pneumonia. CTA Chest: Mild cardiomegaly without pulmonary emboli. 2. Extensive bilateral groundglass and alveolar opacities are compatible with multifocal pneumonia, likely viral etiology. 3. Mild likely reactive mediastinal lymphadenopathy. 4. Hepatosplenomegaly with hepatic steatosis. BNP negative, admitting pro-Mars negative. Sx started 09/09, tested positive in [facility] 09/15 09/19: Patient given detailed information on the prognosis and the nature of Covid course. Explained the possibility of worst case scenario and he would like to go with everything possible including intubation. Nonvaccinated status Continue with dexamethasone at high dose, Completed remdesivir 09/22 lasix stopped, Pulm on Case pulmonary toilet with incentive spirometry, albuterol supportive care encourage self proning Patient requiring high oxygen, wean down oxygen as tolerated. Hepatic steatosis Elevated transaminase level Follow LFT level, LFT normalized. Possibly in setting of fatty liver disease due to morbid obesity on the background of Covid. Encouraged weight loss, diet and lifestyle modifications Hypothyroidism Continue levothyroxine DVT prophylaxis: Lovenox twice daily Labs reviewed Dispo: PCU on 15L HFNC, Improving FULL CODE PCP: Alexey ROS-No Headache, No Visual Changes, No Nausea, No Vomiting, No Fever, No Chills, No Neck Pain or Stiffness, No Chest Pain, No Palpitations, +SOB, +DAY, +Cough, No Sputum, No Wheezing, No Abdominal Pain, No Diarrhea, No Hematemesis, No Hemoptysis, No Unexpected Weight Loss, No Flank pain, No Melena, No Hematochezia, No Frequency, No Urgency, No Burning, No Hematuria, No Rashes, No Diaphoresis. Appetite is Normal Physical Exam Gen-AAO x 3, NAD, Afebrile, Obese Head-NCAT, EOMI, PERRLA, Anicteric Sclera, No Posterior Pharyngeal Erythema Neck-Supple, No JVD, No Thyromegaly, No Masses, No LAD, No Bruits Lungs-Clear to Auscultation Bilaterally, Diminished, No Rales, No Rhonchi, No Wheezing, No Crepitus Chest-No S4, +S1, +S2, No S3, No Murmurs, No Rubs, No Gallops, No Ectopy Abdomen-Soft, Bowel Sounds Present, Non Tender, Non Distended, No Hepatomegaly, No Splenomegaly, No Palpable Masses, No Rebound, No Rigidity, No Guarding Musculoskeletal-Full Range of Motion Bilaterally, No CVAT Extremities-No Cyanosis, No Clubbing, No Edema Nuero-Cranial Nerves II-XII grossly intact, Motor WNL, DTRs WNL, Strength WNL, Non Focal Psych-Normal Mood Admission and Anticipated Discharge Date Admission Date: September 18, 2021 Subjective Progressing nicely this week Results & Data Results & Data ([facility]) Vital Signs (Past 12 Hours) Vital Signs Temp Pulse Pulse Resp BP BP Pulse Ox 09/30/21 09:04 36.6 C 75 20 131/85 90 09/30/21 03:31 36.6 C 62 18 107/65 94 09/30/21 03:15 90 09/30/21 00:38 43 L 09/29/21 23:43 36.6 C 56 L 18 95/56 L 94
[2021-10-01] MEDS: LEVOTHYROXINE SODIUM 137 MCG TABLET PO SCH (06:03)
[2021-10-01] MEDS: HEPARIN SOD 5,000 UNIT/0.5 ML VIAL SQ SCH ×3 (06:03→21:19)
[2021-10-01] MEDS: INSULIN ASPART PER UNIT SC SCH ×4 (06:57→20:48)
[2021-10-01 07:11] LABS: Hematocrit (blood only) 46.2 % (42-52); Mean Corpuscular Hemoglobin 34.6 pg (25-34); Mean Corpuscular Hgb Conc 36.8 g/dL (32-36); Mean Corpuscular Volume 93.9 fL (80-100); Mean Platelet Volume 10.2 fL (7.4-10.4); Platelet Count 308 K/uL (130-400); RDW Coefficient of Variation 12.8 % (11.5-14.5); RDW Standard Deviation 43.8 fL (36.4-46.3); Red Blood Count 4.92 M/uL (4.7-6.1); White Blood Count 16.62 K/uL (4.8-10.8)
[2021-10-01 07:35] LABS: BUN Creatinine Ratio 31.1 (10-20); Calcium 8.5 mg/dl (8.5-10.1); Creatinine Clr Calc Pharmacy 167.9 ml/min; Est GFR (African American) 107.9 ml/min; Est GFR (Non-African American) 93.1 ml/min; Potassium 4.5 mmol/L (3.5-5.1)
--- NOTE | 2021-10-01 08:08 | Pulmonology Progress Note ---
Date of Service October 01, 2021 Assessment & Plan (1) Pneumonia due to COVID-19 virus: (2) Acute hypoxemic respiratory failure due to COVID-19: (3) Morbid obesity with BMI of 50.0-59.9, adult: (4) D-dimer, elevated: Plan: Impression: 30-year-old male with a history of morbid obesity and hypothyroidism now with COVID-19 viral pneumonia. Recommendations: COVID PNA: Day #7 of high-dose Decadron -given that his CRP is undetectable and is showing clinical improvement, will taper to off over the next 3-4 days, decrease to 2 mg a day today. Continue proning and pulmonary toileting as much as possible. Continue the use of alternating high flow nasal cannula and CPAP therapy. Chest x-ray from 09/25 with multifocal pneumonia seen similar to prior exam. Continue diuresis until bump in creatinine or BUN. Okay to transition to oral diuretics. Will defer to primary service. Systemic anticoagulation was initiated based on increased D dimer - CTA negative from 09/18 and duplex US negative 09/26. Off heparin and currently on DVT prophylaxis. Possible PNA: Leukocytosis remains, but improved from yesterday which may be related to demargination given high-dose steroid use. Pro-Mars checked 09/25 was less than 0.05 ng/mL. Blood cultures from 09/27 no growth to date. No indication for antibiotics currently Hypoxemic resp failure: secondary to above. Continue attempts to wean oxygen as tolerated. Can consider dismissal from the hospital once his oxygen requirement goes below 6 L/min and can be safely administered at home Recommend that patient sleep-wake cycle strain be maintained is much as possible. Would try and avoid interruptions to the patient's regular sleep schedule. Would recommend a follow-up chest x-ray in 6 to 8 weeks and consideration for outpatient pulmonary function tests in 3 months or so depending on clinical course. Discussed with patient at bedside and questions answered. We will sign off at this point time. Feel free to contact us if we can be of additional assistance. Admission and Anticipated Discharge Date Admission Date: September 18, 2021 Subjective Patient seen and examined. EMR reviewed. He is clinically improving. His oxygen is being weaned. He continues to use incentive spirometry and flutter valve. He slept slightly better. He is self proning as tolerated Review of Systems Review of Systems: All systems reviewed & are unremarkable except as noted in Subjective Physical Exam Constitutional: WD/WN, vitals as above + morbidly obese Neck: trachea midline, no thyromegaly Respiratory: normal respiratory effort; no respiratory distress, no labored breathing and not tachypneic Auscultation: + rales; no wheezes Cardiovascular: RRR, no murmur, no edema Gastrointestinal (Abdomen): normal bowel sounds, soft, nontender, no hepatosplenomegaly Musculoskeletal: Extremities: extremities normal to inspection Skin: no rashes, warm and dry Lymphatic: no cervical lymphadenopathy Results & Data Results & Data ([facility]) Vital Signs (Past 12 Hours) Vital Signs Temp Pulse Pulse Resp BP BP Pulse Ox 10/01/21 07:16 56 L 10/01/21 07:00 36.7 C 74 16 122/64 97 10/01/21 03:18 36.3 C L 70 20 111/73 96 09/30/21 23:07 36.6 C 63 21 104/61 94 09/30/21 22:34 68 19 96 Critical Care Results & Data Vital Signs (Past 12 Hours) Vital Signs Temp Pulse Pulse Resp BP BP Pulse Ox 10/01/21 07:16 56 L 10/01/21 07:00 36.7 C 74 16 122/64 97 10/01/21 03:18 36.3 C L 70 20 111/73 96 09/30/21 23:07 36.6 C 63 21 104/61 94 09/30/21 22:34 68 19 96 Lab & Micro Results (Past 24 Hours) RBC 4.92 M/uL (4.7-6.1) 10/01/21 WBC 16.62 K/uL (4.8-10.8) H 10/01/21 Hgb 17.0 g/dL (14.0-18.0) 10/01/21 Hct 46.2 % (42-52) 10/01/21 MCV 93.9 fL (80-100) 10/01/21 MCH 34.6 pg (25-34) H 10/01/21 MCHC 36.8 g/dL (32-36) H 10/01/21 RDW Standard Deviation 43.8 fL (36.4-46.3) 10/01/21 RDW Coefficient of Variation 12.8 % (11.5-14.5) 10/01/21 Plt Count 308 K/uL (130-400) 10/01/21 MPV 10.2 fL (7.4-10.4) 10/01/21 Na 133 mmol/L (136-145) L 10/01/21 K 4.5 mmol/L (3.5-5.1) 10/01/21 Cl 100 mmol/L (98-107) 10/01/21 CO2 28 mmol/L (21-32) 10/01/21 Anion Gap 5 (3-11) 10/01/21 BUN 33 mg/dl (6-23) H 10/01/21 Creatinine 1.06 mg/dl (0.6-1.4) 10/01/21 Estimated GFR ( Amer) 107.9 ml/min 10/01/21 Estimated GFR (Non-Af Amer) 93.1 ml/min 10/01/21 BUN/Creatinine Ratio 31.1 (10-20) H 10/01/21 Glu 119 mg/dl (70-99(Fasting)) H 10/01/21 Ca 8.5 mg/dl (8.5-10.1) 10/01/21 Calcium Level 8.5 mg/dl (8.5-10.1) 10/01/21 06:43 10/01/21 I & O Totals 24 Hours 09/30/21 10/01/21 10/02/21 06:59 06:59 06:59 Intake Total 900.4 / 900.4 1460 / 1460 Output Total 3800 / 3800 2325 / 2325 Balance -2899.6 / -2899.6 -865 / -865 Cumulative 09/18/21 11:15 thru 10/01/21 06:11 Intake Total 97399.384 Output Total 91676 Balance -24369.616 RT Ventilator Mngmt (Last Documented) Ventilator Ordered Settings Respiratory Rate 16 10/01/21 07:00 Fraction of Inspired Oxygen 65 09/30/21 23:30 Ventilator - PT Measurements Respiratory Rate 16 PG Care Time/CCT Total # of Minutes Spent Total Time Spent with Patient: Total time spent is greater than 50% in coordination of care (as documented) at patient's floor/unit and/or counseling patient: Coding Level of Care Code 71699 Subseq Hosp Care Lvl 2 Diagnoses Pneumonia due to COVID-19 virus U07.1; J12.82 Acute hypoxemic respiratory failure due to COVID-19 U07.1; J96.01 Morbid obesity with BMI of 50.0-59.9, adult E66.01; Z68.43 D-dimer, elevated R79.89
[2021-10-01] MEDS: BENZONATATE 100 MG CAPSULE PO SCH ×3 (08:51→21:19)
[2021-10-01] MEDS: PANTOprazole 40 MG TAB PO SCH (08:51)
[2021-10-01] MEDS: FUROSEMIDE INJ 20 MG/2 ML VIAL IV SCH (08:52)
[2021-10-01] MEDS: dexAMETHasone 2 MG in SYRINGE 0 ML IV SCH (08:56)
[2021-10-01] MEDS ORDERED: dexAMETHasone 4 MG in SYRINGE 0 ML IV SCH (09:00)
--- NOTE | 2021-10-01 17:04 | Hospitalist Progress Note ---
Date of Service October 01, 2021 Assessment & Plan (1) Acute respiratory failure with hypoxia: (2) Pneumonia due to COVID-19 virus: (3) Morbid obesity with BMI of 50.0-59.9, adult: (4) Hypothyroidism: (5) Elevated transaminase level: Plan: Acute hypoxic respiratory failure Pneumonia due to COVID-19 Present on admission with worsening SOB associated with cough and hypoxia Unvaccinated for COVID 19 Symptoms started 09/09, tested positive in [facility] clinic on 09/15 CXR showedmultifocal patchy bilateral airspace opacities. This likely represents a viral pneumonia. CTA Chest showedno pulmonary emboli. Extensive bilateral groundglass and alveolar opacities are compatible with multifocal pneumonia, likely viral etiology. Mild likely reactive mediastinal lymphadenopathy. BNP negative and pro-Mars negative. Completed the course of Remdesivir Continue with dexamethasone, will taper to off over the next 3-4 days, decrease to 2 mg a day today. Pulmonology on board Continue oxygen supplement Continue self proning Continue Lasix IV Continue flutter valve and incentive spirometry Follow-up chest x-ray in 6 to 8 weeks and consideration for outpatient pulmonary function tests in 3 months Elevated Ddimer Mostly due to covid 19 CTA chest showed no PE Venous doppler showed no evidence of deep venous thrombus. Heparin drip was discontinued Hepatic steatosis Elevated transaminase level LFT on admission with AST 98 and ALT 85 LFT normalized. Hypothyroidism Continue levothyroxine DVT prophylaxis: On heparin subq Code Status FULL CODE Disposition Continue monitor closely Admission and Anticipated Discharge Date Admission Date: September 18, 2021 Subjective Patient was seen and examined for follow-up of shortness of breath due to COVID- 19 Lying in the proning position in bed with no acute distress Patient said his breathing is a lot better compared to when he came Currently he is requiring 8 L nasal cannula oxygen Denies any chest pain, palpitation, dizziness, and fever. Review of Systems Review of Systems: All systems reviewed & are unremarkable except as noted in Subjective Physical Exam Physical Exam: General- No acute distress Head- atraumatic Eyes- PERRL, EOMI, ENT- oropharynx clear Neck- supple, no JVD Lungs- diminished breath sound Heart- regular rhythm; no murmur Abdomen- normal bowel sounds, soft, nontender Extremities- no calf tenderness Neuro- alert, oriented x 3; PERRL, EOMI; no facial palsy; no dysarthria Skin- warm & dry Results & Data Results & Data ([facility]) Vital Signs (Past 12 Hours) Vital Signs Temp Pulse Pulse Resp BP Pulse Ox 10/01/21 16:04 92 10/01/21 15:00 90 10/01/21 11:47 92 10/01/21 10:16 94 10/01/21 09:41 93 10/01/21 07:16 56 L 10/01/21 07:00 36.7 C 74 16 122/64 97
[2021-10-01] MEDS: ACETAMINOPHEN 500 MG TAB PO PRN (21:56)
[2021-10-01] MEDS: MoRPHine SULFATE 2 MG/ML CARP IV PRN (21:57)
[2021-10-02] MEDS: LEVOTHYROXINE SODIUM 137 MCG TABLET PO SCH (06:21)
[2021-10-02] MEDS: HEPARIN SOD 5,000 UNIT/0.5 ML VIAL SQ SCH ×3 (06:22→20:47)
[2021-10-02 08:33] LABS: BUN Creatinine Ratio 31.3 (10-20); Calcium 8.4 mg/dl (8.5-10.1); Est GFR (African American) 121.6 ml/min; Est GFR (Non-African American) 104.9 ml/min; Potassium 3.9 mmol/L (3.5-5.1)
[2021-10-02] MEDS: INSULIN ASPART PER UNIT SC SCH ×4 (08:41→20:52)
[2021-10-02] MEDS: BENZONATATE 100 MG CAPSULE PO SCH ×3 (08:51→20:44)
[2021-10-02] MEDS: FUROSEMIDE INJ 20 MG/2 ML VIAL IV SCH (08:51)
[2021-10-02] MEDS: dexAMETHasone 2 MG in SYRINGE 0 ML IV SCH (08:52)
[2021-10-02] MEDS: PANTOprazole 40 MG TAB PO SCH (08:52)
--- NOTE | 2021-10-02 21:28 | Hospitalist Progress Note ---
Date of Service October 02, 2021 Assessment & Plan (1) Acute respiratory failure with hypoxia: (2) Pneumonia due to COVID-19 virus: (3) Morbid obesity with BMI of 50.0-59.9, adult: (4) Hypothyroidism: (5) Elevated transaminase level: Plan: Acute hypoxic respiratory failure Pneumonia due to COVID-19 Present on admission with worsening SOB associated with cough and hypoxia Unvaccinated for COVID 19 Symptoms started 09/09, tested positive in [facility] clinic on 09/15 CXR showedmultifocal patchy bilateral airspace opacities. This likely represents a viral pneumonia. CTA Chest showedno pulmonary emboli. Extensive bilateral groundglass and alveolar opacities are compatible with multifocal pneumonia, likely viral etiology. Mild likely reactive mediastinal lymphadenopathy. BNP negative and pro-Mars negative. Completed the course of Remdesivir Continue with dexamethasone, will taper to off over the next 3-4 days, decrease to 2 mg a day Pulmonology on board Continue oxygen supplement Continue to wean off oxygen Continue self proning Will discontinue IV lasix then transition to PO in am Continue flutter valve and incentive spirometry Follow-up chest x-ray in 6 to 8 weeks and consideration for outpatient pulmonary function tests in 3 months will get a 2 step exercise in am Elevated Ddimer Mostly due to covid 19 CTA chest showed no PE Venous doppler showed no evidence of deep venous thrombus. Heparin drip was discontinued Hepatic steatosis Elevated transaminase level LFT on admission with AST 98 and ALT 85 LFT normalized. Hypothyroidism Continue levothyroxine DVT prophylaxis: On heparin subq Code Status FULL CODE Disposition Plan to discharge tomorrow Admission and Anticipated Discharge Date Admission Date: September 18, 2021 Subjective Patient was seen and examined for follow-up of shortness of breath due to COVID- 19 Lying in bed with no acute distress Patient said his breathing continue to improve Currently he is requiring 2 L nasal cannula oxygen He is looking forward to discharge tomorrow that he can celebrate his daughter birthday on Wednesday Denies any chest pain, palpitation, dizziness, and fever. Review of Systems Review of Systems: All systems reviewed & are unremarkable except as noted in Subjective Physical Exam Physical Exam: General- No acute distress Head- atraumatic Eyes- PERRL, EOMI, ENT- oropharynx clear Neck- supple, no JVD Lungs- diminished breath sound Heart- regular rhythm; no murmur Abdomen- normal bowel sounds, soft, nontender Extremities- no calf tenderness Neuro- alert, oriented x 3; PERRL, EOMI; no facial palsy; no dysarthria Skin- warm & dry Results & Data Results & Data ([facility]) Vital Signs (Past 12 Hours) Vital Signs Temp Pulse Pulse Resp BP Pulse Ox 10/02/21 18:59 36.6 C 83 20 143/85 H 91 10/02/21 16:33 36.6 C 80 18 140/88 92 10/02/21 14:15 82 10/02/21 11:23 36.3 C L 78 16 130/81 93
[2021-10-03] MEDS: LEVOTHYROXINE SODIUM 137 MCG TABLET PO SCH (05:31)
[2021-10-03] MEDS: HEPARIN SOD 5,000 UNIT/0.5 ML VIAL SQ SCH ×2 (05:31→14:43)
[2021-10-03] MEDS: PANTOprazole 40 MG TAB PO SCH (09:05)
[2021-10-03] MEDS: BENZONATATE 100 MG CAPSULE PO SCH ×2 (09:05→14:42)
[2021-10-03] MEDS: INSULIN ASPART PER UNIT SC SCH ×2 (09:20→13:14)
[2021-10-03] MEDS: dexAMETHasone 2 MG in SYRINGE 0 ML IV SCH (09:21)
[2021-10-03] MEDS ORDERED: FUROSEMIDE 20 MG TAB PO ONE (09:44)
--- NOTE | 2021-10-03 14:48 | Discharge Summary ---
Date of Service October 03, 2021 Admission HPI Per Admitting Provider This is a 30 yr old M who has a significant PMH of morbid obesity and hypothyroidism who presents to ED 08/27 to worsening cough, sob and low pulse ox readings x 1 day. He was dx with covid-19 on 09/15. He initially started with sx on 09/09. He developed rigors, chills, cough and SOB. He was seen in clinic on 09/15 where he initially tested positive. He was prescribed oral prednisone 20mg daily x 5 days and a zpack. Pt borrowed his neighbors pulse ox today and noted his oxygen to be in the 70s. He also had a telemedicine visit with Dr. Piña who witnessed pulse ox readings in the 80s. Pt was urged to proceed to ED. In ED he was hypoxic requiring 4L of O2. He was afebrile. CXR concerning for viral pneumonia. He had and elevated dimer and crp. CTA chest was negative for PE but did confirm multifocal pneumonia, hepatic steatosis and cardiomegaly. Pt did also complain of intermittent chest pain. Admission Exam Per Admitting Provider On examination Morbidly obese with moderate shortness of breath at rest Chestdecreased breath sounds both bases without any crackles and or wheezing HeartS1, S2 regular Abdomenbenign Extremitiesno edema Principal Diagnosis (1) Acute respiratory failure with hypoxia: (2) Pneumonia due to COVID-19 virus: (3) Morbid obesity with BMI of 50.0-59.9, adult: (4) Hypothyroidism: (5) Elevated transaminase level: Discharge Exam General- No acute distress Head- atraumatic Eyes- PERRL, EOMI, ENT- oropharynx clear Neck- supple, no JVD Lungs- diminished breath sound Heart- regular rhythm; no murmur Abdomen- normal bowel sounds, soft, nontender Extremities- no calf tenderness Neuro- alert, oriented x 3; PERRL, EOMI; no facial palsy; no dysarthria Skin- warm & dry Discharge Data Allergies Allergy/AdvReac Type Severity Reaction Status Date / Time Penicillins Allergy Mild PENICILLIN Verified 09/18/21 13:36 AND AMOXICILLIN-SOB HIVES amoxicillin Allergy Hives Unverified 09/18/21 13:36 Consultations 09/18/21 12:57 ED Decision to Admit Stat 09/25/21 11:08 Consult Pulmonology Routine Ordered Studies 09/18/21 12:24 CT angio chest PE protocol Stat 09/26/21 14:34 US venous doppler LE BI Urgent US venous doppler LE BI CLINICAL HISTORY: Bilateral leg swelling. COMPARISON: None available at the time of this dictation. TECHNIQUE: Bilateral lower extremity real-time compression venous ultrasound with Color Doppler imaging. Utilizing real-time ultrasonic imaging multiple real time high-resolution ultrasonic images with compression and noncompression maneuvers of the deep venous system in addition to color doppler imaging were performed from the com mon femoral vein through the proximal calf veins. FINDINGS: Currently there is normal compressibility of the deep venous system from the common femoral vein through the proximal calf veins. No current evidence of acute thrombosis is identified. Impression: No evidence of deep venous thrombus. ACT 112: Negative or not required by law. Electronically signed by: Antony Ngo M.D. 09/27/2021 6:36 AM Dictated:09/27/2136 Transcribed: 09/27/21 0636 XR chest 1V portable CLINICAL HISTORY: worsening hypoxia TECHNIQUE: Single frontal radiograph of the chest was obtained. Comparison: Comparison is made to chest one view 09/19/2021 FINDINGS: No lines and tubes are seen. The cardiomediastinal silhouette is stable. Multifocal airspace opacities are seen. No evidence of pleural effusion or pneumothorax. IMPRESSION: Multifocal pneumonia is again seen, similar in appearance to prior exam. ACT 112: Negative or not required by law. Electronically signed by: Tyron Keys M.D. 09/25/2021 6:44 PM Dictated:09/25/21 1844 Transcribed: 09/25/21 1844 XR chest 1V portable HISTORY: 30 years-old Male f/u, increasing O2 req acute hypoxia COMPARISON: Chest radiograph and CTA chest 09/18/2021 TECHNIQUE: Portable AP view of the chest FINDINGS: Cardiac silhouette is enlarged. Interstitial coarsening with extensive bilateral airspace opacities, stable to mildly progressed. No pneumothorax or large pleural effusion. The bones appear grossly intact. IMPRESSION: Stable to mildly progressed extensive bilateral airspace opacities compatible with multifocal pneumonia. ACT 112: Negative or not required by law. The above report was generated using voice recognition software. It may contain grammatical, syntax or spelling errors. Electronically signed by: Yvan Benito M.D. 09/19/2021 10:35 AM Dictated:09/19/21 1029 Transcribed: 09/19/21 1029 XR chest 1V portable HISTORY: 30 years-old Male low o2 acute hypoxia. COVID Positive. COMPARISON: Chest radiograph and CTA chest studies of same day TECHNIQUE: Portable AP view of the chest FINDINGS: Cardiac silhouette is enlarged. Lungs are hypoinflated. Extensive bilateral airspace opacities redemonstrated without significant change. No pneumothorax or large pleural effusion. The bones appear grossly intact. IMPRESSION: Extensive bilateral airspace opacities compatible with multifocal pneumonia redemonstrated. ACT 112: Negative or not required by law. The above report was generated using voice recognition software. It may contain grammatical, syntax or spelling errors. Electronically signed by: Yvan Benito M.D. 09/19/2021 7:33 AM Dictated:09/19/21730 Transcribed: 09/19/21730 CT angio chest PE protocol CT DOSE: 1210.79 mGy.cm HISTORY: 30 years-old Male with COVID, Hypoxia. Acute hypoxia. COVID Positive. TECHNIQUE: Multiple CTA images of the chest were obtained after the intravenous administration of 119 ml Optiray. Coronal and sagittal MIPS were obtained from the axial data set and were submitted for review. All measurements were obtained according to NASCET criteria. A dose lowering technique was utilized adhering to the principles of ALARA. COMPARISON: Chest radiograph 09/18/2021 FINDINGS: CTA: Mild cardiomegaly. No pericardial effusion. No thoracic aortic aneurysm or dis section. There is patency of the imaged great vessels. Unremarkable pulmonary artery. CT CHEST: No thyroid nodule. Mildly enlarged paratracheal lymph nodes measure up to 1.3 cm. Prominent subcentimeter bilateral hilar lymph nodes. No pneumothorax or pleural effusion. Extensive multifocal multilobar bilateral excretion of groundglass and alveolar opacities. The central airways are patent. Hepatomegaly with hepatic steatosis. The spleen also appears enlarged. Unremarkable soft tissues. Mild mid thoracic dextroscoliosis. No acute fracture IMPRESSION: 1. Mild cardiomegaly without pulmonary emboli. 2. Extensive bilateral groundglass and alveolar opacities are compatible with multifocal pneumonia, likely viral etiology. 3. Mild likely reactive mediastinal lymphadenopathy. 4. Hepatosplenomegaly with hepatic steatosis. ACT 112: Negative or not required by law. The above report was generated using voice recognition software. It may contain grammatical, syntax or spelling errors. Electronically signed by: Yvan Benito M.D. 09/18/2021 1:10 PM Dictated:09/18/21 1304 Transcribed: 09/18/21 1304 XR chest 1V portable HISTORY: COVID,hypoxia COMPARISON: Chest 06/24/2021. FINDINGS: There are low lung volumes. There are multifocal patchy bilateral airspace opacities. The heart is mildly enlarged. No pleural effusions. No pneumothorax. IMPRESSION: 1. Multifocal patchy bilateral airspace opacities. This likely represents a viral pneumonia. 2. Mild cardiomegaly. ACT 112: Negative or not required by law. Electronically signed by: Rafiq Jara M.D. 09/18/2021 12:22 PM Dictated:09/18/21 1221 Transcribed: 09/18/21 1221 Hospital Course (1) Acute respiratory failure with hypoxia: (2) Pneumonia due to COVID-19 virus: (3) Morbid obesity with BMI of 50.0-59.9, adult: (4) Hypothyroidism: (5) Elevated transaminase level: Acute hypoxic respiratory failure Pneumonia due to COVID-19 Present on admission with worsening SOB associated with cough and hypoxia Unvaccinated for COVID 19 Symptoms started 09/09, tested positive in [facility] clinic on 09/15 CXR showedmultifocal patchy bilateral airspace opacities. This likely represents a viral pneumonia. CTA Chest showedno pulmonary emboli. Extensive bilateral groundglass and alveolar opacities are compatible with multifocal pneumonia, likely viral etiology. Mild likely reactive mediastinal lymphadenopathy. BNP negative and pro-Mars negative. Completed the course of Remdesivir Continue with dexamethasone, will taper to off over the next 3-4 days, decrease to 2 mg a day Pulmonology on board Continue oxygen supplement Continue to wean off oxygen Continue self proning IV lasix discontinued Lasix 20mg PO x1 given today Continue flutter valve and incentive spirometry Follow-up chest x-ray in 6 to 8 weeks and consideration for outpatient pulmonary function tests in 3 months Pt does not want to stay any longer in the hospital, he already made his mind to go home today (His daughter birthday is tomorrow) 2 step exercise showed pt requires 2L NC at rest and 5L NC with ambulation/activity Again I encouraged him to stay for another night, he does not want to stay. He said that he feels like that he will recover faster if he goes home Advised pt if symptoms worsening or develop any SOB to seek urgent medical atten tion Elevated Ddimer Mostly due to covid 19 CTA chest showed no PE Venous doppler showed no evidence of deep venous thrombus. Heparin drip was discontinued Hepatic steatosis Elevated transaminase level LFT on admission with AST 98 and ALT 85 LFT normalized. Hypothyroidism Continue levothyroxine DVT prophylaxis: On heparin subq Code Status FULL CODE Disposition Plan to discharge today Total Time Total Time Spent Total Time Spent (In Minutes): 35 minutes Discharge Plan Discharge Items Patient Disposition: Home - Home Health Services Reason For Visit: COVID PNA, HYPOXIA Discharge Diagnosis: (1) Acute respiratory failure with hypoxia: (2) Pneumonia due to COVID-19 virus: (3) Morbid obesity with BMI of 50.0-59.9, adult: (4) Hypothyroidism: (5) Elevated transaminase level: Condition on Discharge: Good Activity: Resume your previous activity Non-emergency contact: Primary Care Provider and Splicer Helper Call non-emergency contact if: you have any medication questions and your symptoms worsen Follow-up/Referrals: Orville Blackburn MD [Primary Care Provider] - (Date & Time 10/10/2021 12:00 PM Provider Orville Blackburn MD Department [facility] ) Diet: Regular Addtl Attending Provider Instructions: Follow up with your primary care provider Dr. Blackburn on 10/10/2021 at 12:00 PM at the [facility] Follow up with pulmonology for outpatient pulmonary function tests in 3 months Follow-up chest x-ray in 6 to 8 weeks Continue oxygen supplement with 2 liter Nasal canula at rest and 5 liter nasal canula with ambulation/activity Continue incentive spirometry and flutter valve Advised to continue self proning Seek urgent medical attention if your symptoms worsening or if you develop any shortness of breath Home Isolation COVID-19 Instructions The following information about Home Isolation is from the CDC Website: https://www.cdc.gov/coronavirus/2019-ncov/hcp/yogvwsmt-zarjfov-ituiwf.html Stay home except to get medical care People who are mildly ill with COVID-19 are able to isolate at home during their illness. You should restrict activities outside your home, except for getting medical care. Do not go to work, school, or public areas. Avoid using public transportation, ride-sharing, or taxis. Separate yourself from other people and animals in your home People: As much as possible, you should stay in a specific room and away from other people in your home. Also, you should use a separate bathroom, if pj ilable. Animals: You should restrict contact with pets and other animals while you are sick with COVID-19, just like you would around other people. Although there have not been reports of pets or other animals becoming sick with COVID-19, it is still recommended that people sick with COVID-19 limit contact with animals until more information is known about the virus. When possible, have another member of your household care for your animals while you are sick. If you are sick with COVID-19, avoid contact with your pet, including petting, snuggling, being kissed or licked, and sharing food. If you must care for your pet or be around animals while you are sick, wash your hands before and after you interact with pets and wear a face mask. Call ahead before visiting your doctor If you have a medical appointment, call the healthcare provider and tell them that you have or may have COVID-19. This will help the healthcare providers office take steps to keep other people from getting infected or exposed. Wear a face mask You should wear a face mask when you are around other people (e.g., sharing a room or vehicle) or pets and before you enter a healthcare providers office. If you are not able to wear a face mask (for example, because it causes trouble breathing), then people who live with you should not stay in the same room with you, or they should wear a face mask if they enter your room. Cover your coughs and sneezes Cover your mouth and nose with a tissue when you cough or sneeze. Throw used tissues in a lined trash can. Immediately wash your hands with soap and water for at least 20 seconds or, if soap and water are not available, clean your hands with an alcohol-based hand business development coordinator that contains at least 60% alcohol. Clean your hands often Wash your hands often with soap and water for at least 20 seconds, especially after blowing your nose, coughing, or sneezing; going to the bathroom; and before eating or preparing food. If soap and water are not readily available, use an alcohol-based hand business development coordinator with at least 60% alcohol, covering all surfaces of your hands and rubbing them together until they feel dry. Soap and water are the best option if hands are visibly dirty. Avoid touching your eyes, nose, and mouth with unwashed hands. Avoid sharing personal household items You should not share dishes, drinking glasses, cups, eating utensils, towels, or bedding with other people or pets in your home. After using these items, they should be washed thoroughly with soap and water. Clean all high-touch surfaces everyday High touch surfaces include counters, tabletops, doorknobs, bathroom fixtures, toilets, phones, keyboards, tablets, and bedside tables. Also, clean any surfaces that may have blood, stool, or body fluids on them. Use a household cleaning spray or wipe, according to the label instructions. Labels contain instructions for safe and effective use of the cleaning product including precautions you should take when applying the product, such as wearing gloves and making sure you have good ventilation during use of the product. Monitor your symptoms Seek prompt medical attention if your illness is worsening (e.g., difficulty breathing).Beforeseeking care, call your healthcare provider and tell them that you have, or are being evaluated for, COVID-19. Put on a face mask before you enter the facility. These steps will help the healthcare providers office to keep other people in the office or waiting room from getting infected or exposed. Ask your healthcare provider to call the local or state health department. Persons who are placed under active monitoring or facilitated self- monitoring should follow instructions provided by their local health department or occupational health professionals, as appropriate. When working with your local health department check their available hours. If you have a medical emergency and need to call 911, notify the dispatch personnel that you have, or are being evaluated for COVID-19. If possible, put on a face mask before emergency medical services arrive. Discontinuing home isolation Patients with confirmed COVID-19 should remain under home isolation precautions until the risk of secondary transmission to others is thought to be low. The decision to discontinue home isolation precautions should be made on a [id number]-dilv basis, in consultation with healthcare providers and state and local health departments. Coronavirus disease 2019 (COVID-19) is a virus that causes a respiratory illness. It is caused by a coronavirus called 2019 novel coronavirus (2019- nCoV). There are many types of coronavirus. Coronaviruses are a very common cause of bronchitis. They may sometimes cause lung infection(pneumonia). Symptoms can range from mild to severe respiratory illness. These viruses are also foundin some animals. COVID-19 was first found in people in [facility], in late 2018. In 2020, several cases of COVID-19 have been confirmed in the [place] Public health officials are working to find the source. How the virus spreads is not yet fully known. It may be spread through droplets of fluid that a person coughs or sneezes into the air. It may be spread if you touch a surface with virus on it, such as a handle or object, and then touch your mouth. What are the symptoms of COVID-19? Some people have no symptoms or mild symptoms. Symptoms may appear 2 to 14 days after contact with the virus. Symptoms can include: Fever Coughing Trouble breathing What are possible complications from COVID-19? In many cases, this virus can cause infection (pneumonia) in both lungs. In some cases, this can cause . How is COVID-19 diagnosed? Your healthcare provider will ask about your symptoms. He or she will also ask about your recent travel and contact with sick people. Testing for the virus is only done through the CDC. If yourhealthcare provider thinks you may have COVID- 19, he or she will work with your local health department and the CDC on testing. Follow all instructions from your healthcare provider. COVID-19 is diagnosed by: Nasal and throat swab. A cotton-tipped swab is wiped inside your nose or throat. This is done to check for viruses in your nasal mucus. Sputum culture. A small sample of mucus coughed from your lungs (sputum) is collected if you have a cough. It is checked for the virus. How is COVID-19 treated? There is currently no medicine to treat the virus. Treatment is done to help your body while it fights the virus. This is known as supportive care. Supportive care may include: Pain medicine. These include acetaminophen and ibuprofen. They are used to help ease pain and reduce fever. Bed rest. This helps your body fight the illness. For severe illness, you may need to stay in the hospital. Care during severe illness may include: IV (intravenous) fluids.These are given through a vein to help keep your body hydrated. Oxygen. Supplemental oxygen or ventilation with a breathing machine (ventilator) may be given. This is done to keep enough oxygen in your body. Are you at risk for COVID-19? If youve been to a place where people have been sick with this virus, you are at risk for infection. You are at risk if you: Recently traveled to an affected area Had contact with a sick person who recently traveled to this area Had contact with a person who was diagnosed with COVID-19 How can COVID-19 be prevented? There is no vaccine yet. The best prevention is to not have contact with the virus. The CDC advises that people should not travel to areas where there are COVID-19 outbreaks right now for any reason that is not urgent. To help prevent spreading the infection, wash your hands often, or use an alcohol-basedhand business development coordinator. If you are in an area with COVID-19: Wash your hands often. Or use an alcohol-based hand business development coordinator often. Only touch your eyes, nose, or mouth with clean hands. Dont have contact with people who are sick. Follow local instructions about being in public. For example, you may be told to not use public transport for a period of time. Stay away from markets that have live or animals. Wash your hands after touching any animals. Don't touch animals that may be sick. Dont share eating or drinking tools with sick people. Dont kiss someone who is sick. Clean surfaces often with disinfectant. If you were in an area with COVID-19 in the last 14 days: Call your healthcare provider. He or she can talk with local health staff to see what action may be needed. Follow all instructions from your provider. Take your temperature every morning and evening for at least 14 days. This is to check for fever. Keep a record of the readings. Keep watch for symptoms of the virus. Tell your provider right away if you have symptoms. If you were in an area with COVID-19 and have a fever or other symptoms: Dont panic. Keep in mind that other illnesses can cause similar symptoms. Stay away from work, school, and public places. Limit physical contact with family members. Don't kiss anyone or share eating or drinking utensils. Clean surfaces you touch with disinfectant. This is to help prevent the virus from spreading. Call your healthcare provider. Explain that you have been exposed to COVID-19 and have symptoms. Do this before going to any hospital. Wait for instructions. Keep in mind that healthcare staff may wear protective equipment such as masks, gowns, gloves, and eye protection. You may be put in a separate room. This is to prevent the possible virus from spreading. Tell the healthcare staff about recent travel. This includes local travel on public transport. Staff may need to find other people you have been in contact with. Follow all instructions the healthcare staff give you. If you have been diagnosed with COVID-19 Follow all instructions from your healthcare provider. Dont leave your home, except to get medical care. Call your healthcare providers office before going. They can prepare and give you instructions. This will help prevent the virus from spreading. Dont go to work, school, or public areas. Dont use public transport or taxis. Stay away from other people in your home. Have them wear face masks around you. Dont share household items or food. Wear a face mask if you can. This includes at home or in a medical facility. Cover your face with a tissue when you cough or sneeze. Throw the tissue away. Wash your hands. Wash your hands often. Caregivers should: Follow all instructions from healthcare staff. Wear a face mask and protective clothing as advised. Wash hands often. Keep track of the sick persons symptoms. Clean surfaces, fabrics, and laundry thoroughly. Keep other people away from the sick person. When to call your healthcare provider Call your healthcare provider: If youve recently traveled and have symptoms If you have been diagnosed with COVID-19 and your symptoms are worse To learn more To find out more about COVID-19, visit the CDC website at www.cdc.go v/coronavirus/2019-ncov/index.html. [employer]. [address] [place] [address]. All rights reserved. This information is not intended as a substitute for professional medical care. Always follow your healthcare professional's instructions. This information has been adapted from [employer] Pending Studies at Discharge: No Stand-Alone Forms: My [facility], Work/School Release, Smoking Cessation Medications and DC Order Prescriptions: New prednisone 10 mg tablet 10 mg PO UD Qty: 6 RF: 0 Continued levothyroxine 137 mcg tablet 137 mcg PO DAILY RF: 0 Discontinued azithromycin 250 mg tablet 0 mg PO DAILY RF: 0 prednisone 20 mg tablet 20 mg PO DAILY RF: 0 Discharge Orders: Discharge Order (Routine); Ordered 10/03/21 Ordered By: Olga Boothe/Other Patient Handouts: Prediabetes, 5 Steps for Eating Healthier Admission Data Admit Date/Time: 09/18/21 13:04 Attending Provider: Olga Mccauley Admit Provider: Dusty Salter Primary Care Provider: Orville Blackburn Other Providers: Dusty Salter ; Amarjit Campbell ; Jake Pink
== END 2021-10-03 16:20 | disposition home or self-care (01) | DRG 177 ==
LOC: ED 11:15 → SUATTDRO 13:04 → 2S 13:04